=== PATIENT | female | born 1940 | race Caucasian/White ===

== ENCOUNTER 2019-02-27 17:44 | Inpatient (IN) | payer MEDICARE ==
[~2019-02-27] VITALS: Ht 156.2 cm; Wt 65.1 kg
--- NOTE | ~2019-02-27 | HEMODYNAMI ---
PATIENT:LAILA KENNEDY MEDICAL RECORD: [id number] : 40 LOCATION:[facility] D.2118 ADMISSION DATE: 02/27/19 Generatedon:03/02/20199:18 Patient name: LAILA KENNEDY Patient #: [id number] SSN: D OB: 1940 Date of study: 03/02/2019 Page: Of Hemodynamic Procedure Report Patient Data Patient Demographics Procedure consent was obtained First Name: LAILA Gender: Female Last Name: BRENT : 1940 Patient #: [id number] Age: 78 year(s) Race: Unknown Additional ID: [id number] Contact details [address]: [address] [place] [address] State: [place] City: [place] Zip code: [address] Past Medical History Allergies: No known allergies Admission Admission Data Admission Date: 02/27/2019 Admission Time: 19:11 Admit Source: Other Room #: D.2118 Lab Results Lab Result Date: 03/02/2019 Lab Result Time: 4:53 Biochemistry Name Units Result Min Max BUN mg/dl 31 --(----)-* 7 18 Creatinine mg/dl 1.7 --(----)-* 0.6 1.3 CBC Name Units Result Min Max Hematocrit % 28.7 *-(----)-- 42 54 Hemoglobin g/dl 9.6 *-(----)-- 13.5 17.5 Procedure Procedure Types Cath Procedure Diagnostic Procedure [facility] w/Coronaries Sedation Charges Moderate Sedation up to 30 minutes Procedure Description Procedure Date Procedure Date: 03/02/2019 Procedure Start Time: 8:34 Procedure End Time: 9:12 Procedure Staff Name Function Max Moralez MD Performing Physician Subhash Solo RT Monitor Dorothy North RT Scrub Natasha Maldonado RN Supervisor Bonding Lucy Brewer RN Nurse Procedure Data Cath Procedure Fluoroscopy Diagnostic fluoroscopy Total fluoroscopy Time: 7.2 time: 7.2 min min Diagnostic fluoroscopy Total fluoroscopy dose: dose: 1039 mGy 1039 mGy Contrast Material Contrast Material Type Amount (ml) Isovue 300 119 Entry Location Entry Primary Successful Side Size Upsize Upsize Entry Closure Succes sful Closure Location (Fr) 1 (Fr) 2 (Fr) Remarks Device Remarks Femoral Right 5 Fr 6 Fr Exoseal artery Short Estimated blood loss: 10 ml Diagnostic catheters Device Type Used For End Catheter Placement MULTIPACK JL 4.0 5Fr Procedure catheter MULTIPACK 3DRC 5Fr Procedure catheter MULTIPACK Pigtail 5 Fr Procedure catheter Procedure Complications No complications Procedure Medications Medication Administration Route Dosage 0.9% NaCl I.V. 100 ml/hr Oxygen etCO2 Nasal cannula 2 l/min Lidocaine 2% added to field 20 Heparin Flush Bag added to field 2 bags (1000units/500ml NS) Versed I.V. 2 mg Fentanyl I.V. 50 mcg Heparin Bolus I.V. 6500 units Plavix P.O. 600 mg Hemodynamics Rest HGB: 9.6 (g/dl) Heart Rate: 80 (bpm) Pressure Samples Time Site Value (mmHg) Purpose Heart Use Rate(bpm) 8:52 LV 182/4,19 Snapshot 77 Gradients Valve Time Site Site Mean SEP/DFP Peak To Heart Use 1 2 (mmHg) (sec/min) Peak Rate (mmHg) (bpm) Aortic 8:53 LV AO 86 Snapshots Pre Cath Intra NCS Post Cath Vital Signs Time Heart Resp SPO2 etCO2 NIBP (mmHg) Rhythm Pain Sedation Rate (ipm) (%) (mmHg) Status Level (bpm) 8:23:41 80 19 98 26.1 176/86(134) NSR 0 (11) 10(A) , No pain 8:28:22 81 18 97 16.4 166/82(128) NSR 0 (11) 10(A) , No pain 8:32:57 82 17 98 17.1 159/82(112) NSR 0 (11) 10(A) , No pain 8:37:29 83 14 97 16.4 165/86(130) NSR 0 (11) 9(A) , No pain 8:42:01 83 15 97 14.9 168/84(121) NSR 0 (11) 9(A) , No pain 8:46:28 83 15 97 33.6 158/86(125) NSR 0 (11) 9(A) , No pain 8:51:00 84 16 97 27.6 163/81(124) NSR 0 (11) 9(A) , No pain 8:55:32 85 14 98 20.9 164/87(125) NSR 0 (11) 9(A) , No pain 9:00:07 86 17 98 32.8 156/80(120) NSR 0 (11) 9(A) , No pain 9:04:39 82 17 98 18.6 158/78(115) NSR 0 (11) 9(A) , No pain 9:09:14 80 17 98 30.6 164/76(126) NSR 0 (11) 10(A) , No pain 9:13:46 85 21 98 32.8 168/87(125) NSR 0 (11) 10(A) , No pain Medications Time Medication Route Dose Verified Delivered Reason Notes Effectiveness by by 8:22:00 0.9% NaCl I.V. 100 Max Lucy used for ml/hr Kirt Brewer flight crew time clerk 8:22:07 Oxygen etCO2 2 Max Lucy used for Nasal l/min Kirt Brewer procedure cannula RN 8:22:14 Lidocaine 2% added 20ml Max Max for local to vial Kirt Moralez MD anesthetic field 8:22:18 Heparin Flush added 2 Max Max used for Bag to bags Kirt Moralez MD procedure (1000units/500ml field NS) 8:32:08 Versed I.V. 2 mg Max Lucy for sedation Kirt Brewer RN 8:32:16 Fentanyl I.V. 50 Max Lucy for sedation mcg Kirt Brewer RN 8:57:24 Heparin Bolus I.V. 6500 Max Lucy for verifi ed units Kirt Brewer anticoagulation with Dr. RAJANI Moralez 9:13:55 Plavix P.O. 600 Max Lucy for mg Kirt Brewer antiplatelet RN therapy Procedure Log Time Note 7:57:01 Informed consent obtained and on chart 7:57:09 Admit Source: Other 7:57:46 Diagnostic Cath status Elective 7:57:48 Natasha Maldonado RN sent for patient. Start room use. 7:57:49 Time tracking: Regular hours (M-F 7:00 - 5:00) 7:57:53 Plan of Care:Hemodynamics will remain stable., Cardiac rhythm will remain stable., Comfort level will be maintained., Respiratory function will remain adequate., Patient/ family verbilizes understanding of procedure., Procedure tolerated without complication., Recovers from procedure without complications.. 8:13:13 Patient received from Med II to CCL 1 Alert and oriented. Tansferred to table in Supine position. 8:13:14 Warm blankets applied, and liz hugger turned on for patient comfort. 8:13:14 Correct patient and procedure confirmed by team. 8:13:18 ECG and BP/O2 sat monitors applied to patient. 8:15:03 H&P Date Dictated: 02/28/2019 Within 30 days and on chart.. 8:17:30 Lab Result : BUN 31 mg/dl 8:17:30 Lab Result : Hemoglobin 9.6 g/dl 8:17:30 Lab Result : Creatinine 1.7 mg/dl 8:17:30 Lab Result : Hematocrit 28.7 % 8:22:00 0.9% NaCl 100 ml/hr I.V. was administered by Lucy Brewer RN; used for procedure; 8:22:07 Oxygen 2 l/min etCO2 Nasal cannula was administered by Lucy Brewer RN; used for procedure; 8:22:14 Lidocaine 2% 20ml vial added to field was administered by Max Moralez MD; for local anesthetic; 8:22:18 Heparin Flush Bag (1000units/500ml NS) 2 bags added to field was administered by Max Moralez MD; used for procedure; 8:26:12 Baseline sample Acquired. 8:26:15 Rhythm: sinus rhythm 8:26:17 Full Disclosure recording started 8:26:18 Pre-procedure instructions explained to patient. 8:26:18 Pre-op teaching completed and patient verbalized understanding. 8:26:20 Family in patients room. 8:26:22 Patient NPO since Midnight. 8:26:27 Patient allergic to No known allergies 8:26:29 Is the patient allergic to Iodine/contrast media? No. 8:26:30 Is patient on blood thinner?No 8:26:31 Patient diabetic? Yes. 8:26:32 If diabetic: On Metformin? No 8:26:35 Previous problem with sedation/anesthesia? No ? 8:26:36 Snore? Yes 8:26:38 Sleep apnea? No 8:26:38 Deviated septum? No 8:26:39 Opens mouth fully? Yes 8:26:39 Sticks out tongue? Yes 8:26:41 Airway obstruction? No ? 8:26:43 Dentures? No ? 8:26:47 Pre procedure: right dorsailis pedis pulse Doppler 8:26:49 Patient pain scale 0/10 ?. 8:26:52 IV patent on arrival in left forearm with 0.9% NaCl at [facility]. 8:26:55 Lab results completed and on chart. 8:26:58 Right groin area was prepped with chlora-prep and draped in sterile fashion 8:26:59 Alarms reviewed by R. N. 8:27:00 Sharps counted by scrub and verified by R.N. 8:27:04 Use device set Femoral Dx 8:27:05 ACIST Syringe (10717) opened to sterile field. 8:27:05 Bag Decanter (2002S) opened to sterile field. 8:27:06 Medline Cath Pack ([id number]) opened to sterile field. 8:27:07 ACIST Hand Control (55715) opened to sterile field. 8:27:08 ACIST Manifold (89820) opened to sterile field. 8:27:09 Tegaderm 4 x 4 (1626W) opened to sterile field. 8:27:10 DIAGNOSTIC WIRE .035 260cm J wire (869384) opened to sterile field. 8:27:11 DIAGNOSTIC Multipack 5Fr catheter set (XF2579) opened to sterile field. 8:27:12 SHEATH 5FR [place] (VGK333) opened to sterile field. 8:28:45 Physician arrived 8:28:45 --------ALL STOP TIME OUT------ 8:28:46 Final Timeout: patient, procedure, and site verified with staff and physician. All members of the team are in agreement. 8:28:47 Right groin site verified by team. 8:29:06 Maximum allowable Isovue 300 dose 186ml. Physician notified. (300ml for normal creatinines. For patients with creatinine of 1.7 or higher multiply weight(kg) x 5 divided by creatinine.) 8:29:10 Fire Safety Assessment: A--An alcohol-based skin anteseptic being used preoperatively., C--Open oxygen or nitrous oxide is being used., D--An ESU, laser, or fiber-optic light is being used. 8:29:13 Physical assessment completed. ASA score P 2 - A patient with mild systemic disease as per Max Moralez MD. 8:29:15 Sedation plan: IV Moderate Sedation Medication:Versed, Fentanyl 8:30:54 Zero performed for pressure channel P1 8:32:08 Versed 2 mg I.V. was administered by Lucy Brewer RN; for sedation; 8:32:16 Fentanyl 50 mcg I.V. was administered by Lucy Brewer RN; for sedation; 8:34:43 Procedure started. 8:34:46 Local anesthetic to right femoral artery with Lidocaine 2% by Max Moralez MD.INITIAL ACCESS ONLY 8:42:06 MICROPUNCTURE 4FR Cook ([id number]) opened to sterile field. 8:46:11 Access obtained with 4Fr micropunture. 8:47:08 A 5 Fr sheath was inserted into the Right Femoral artery 8:47:43 A MULTIPACK JL 4.0 5Fr catheter was advanced over the wire and used for Procedure. 8:47:56 LCA angiography performed. 8:49:48 Catheter exchanged over wire. 8:49:56 A MULTIPACK 3DRC 5Fr catheter was advanced over the wire and used for Procedure. 8:50:23 RCA angiography performed. 8:51:24 Catheter exchanged over wire. 8:51:29 A MULTIPACK Pigtail 5 Fr catheter was advanced over the wire and used for Procedure. 8:52:29 INFLATOR Merit BasixCompak (PU7251) opened to sterile field. 8:52:30 SHEATH 6FR [place] (XWV736) opened to sterile field. 8:52:42 TUBING High Pressure Extension Tubing (Kirt) (MH9266M) opened to sterile field. 8:52:53 LV gram done using GARCIA 8:52:56 Injector settings: Ml/sec: 10, Volume: 20, 8:52:57 LV hemodynamics recorded. 8:53:10 EF : 45 % 8:53:33 Catheter removed. 8:53:42 Sheath upsized to a 6 Fr Short. 8:54:01 BMW 300cm Alpha 2 J wire ([id number]) opened to sterile field. 8:54:47 GUIDE 6FR JR 4.0 SH catheter ([id number]) opened to sterile field. 8:56:22 6 Fr JR 4 SH guide catheter was inserted over the wire 8:57:24 Heparin Bolus 6500 units I.V. was administered by Lucy Brewer RN; for anticoagulation; verified with Dr. Moralez 8:58:00 BMW wire advanced. 8:58:42 Wire advanced across lesion. 9:00:00 Inflate balloon Inflation number: 1 A EMERGE OTW 2.0 x 15 balloon ([id number]) was prepped and advanced across the Dist RCA 0, then inflated to 14 ROWAN for 0:10 (min:sec) . 9:01:30 Inflation number: 2 The EMERGE OTW 2.0 x 15 balloon ([id number]) was reinflated across the Dist RCA 99, to 14 ROWAN for 0:10 (min:sec) . 9:02:25 Balloon removed over the wire. 9:07:38 Pre PCI Site: Ramona dRCA has 99% stenosis. 9:08:51 Place stent Inflation Number: 3 A INTEGRITY OTW 2.25 X 26 stent ([id number]) was prepped and advanced across the Dist RCA 99. The stent was deployed at 12 ROWAN for 0:10 (min:sec) 0. 9:10:13 Stent catheter was removed intact over wire. 9:10:19 Wire removed. 9:10:22 Guide catheter removed. 9:10:28 EXOSEAL 6Fr (EX600) opened to sterile field. 9:10:57 Sheath removed intact; hemostasis achieved with Exoseal to the Right Femoral artery. 9:10:59 Procedure ended.(Physican Out) 9:11:25 Fluoroscopy time 07.20 minutes. 9:11:28 Fluoroscopy dose: 1039 mGy 9:11:28 Flurop Dose total: 1039 9:11:31 Contrast amount:Isovue 300 119ml. 9:11:33 Sharps counted by scrub and verified by R.N. 9:11:33 Insertion/operative site no bleeding no hematoma. 9:11:36 Post-op/insertion site Right Femoral artery dressed using a 4 x 4 and Tegaderm. 9:11:39 Post right femoral artery:stable, soft, clean and dry 9:11:39 Post Procedure Pulses reassessed and unchanged 9:11:41 Post-procedure physical assessment completed. ASA score P 2 - A patient with mild systemic disease as per Max Moralez MD. 9:11:43 Post procedure rhythm: unchanged. 9:11:44 Estimated blood loss: 10 ml 9:11:45 Post procedure instruction explained to patient.Patient verbalizes understanding. 9:11:45 Patient needs reinforcement of post procedure teaching. 9:12:12 Procedure type changed to Cath procedure, Diagnostic procedure, LHC, LHC w/Coronaries, Sedation Charges, Moderate Sedation up to 30 minutes 9:12:30 Procedure and supply charges have been captured, reviewed, submitted and are correct. 9:12:36 Procedure Complication : No complications 9:12:37 Vital chart was stopped 9:12:38 See physician's report for complete and final results. 9:12:39 Report given to Pre/Post Procedure Room. 9:12:41 Patient transfered to Pre/Post Procedure Room with Stretcher. 9:12:43 Procedure ended. 9::43 Full Disclosure recording stopped 9:13:55 Plavix 600 mg P.O. was administered by Lucy Brewer RN; for antiplatelet therapy; 9:15:15 End room use (Document Last) Intervention Summary Intervention Notes Time ActionType Lesion and Equipment Action# Pressure Duration Attributes Used 9:00:00 Inflate Dist RCA EMERGE OTW 1 14 00:10 balloon 2.0 x 15 balloon ([id number]) 9:01:30 Reinflate Dist RCA EMERGE OTW 2 14 00:10 balloon 2.0 x 15 balloon ([id number]) 9:08:51 Place stent Dist RCA INTEGRITY 3 12 00:10 OTW 2.25 X 26 stent ([id number]) Device Usage Item Name Manufacture Quantity Catalog Number Hospital Part Current Min imal Lot# / Charge Number Stock Stock Serial# Code ACIST Syringe Acist 1 58522 321491 332494 158926 20 (51508) Medical Systems Inc Bag Decanter Microtek 1 035892 92829 663364 5 () Medical Inc. Medline Cath Medline 1 [id number] 165250 47673 166594 5 Pack ([id number]) ACIST Hand Acist 1 94012 489351 938596 301602 5 Control Medical (25816) Systems Inc ACIST Acist 1 94350 823077 521440 412061 5 [facility] Medical (41047) Systems Inc Tegaderm 4 x 3M 1 1626W 846493 092267 545633 5 4 (1626W) DIAGNOSTIC [facility] [place] 1 178157 792085 489726 728924 30 WIRE .035 260cm J wire (605746) DIAGNOSTIC Cardinal 1 YX8448 936819 86749 852011 30 Multipack 5Fr Health catheter set (QR2218) SHEATH 5FR Terumo 1 CTD844 132956 373215 186204 5 [place] (NTL404) MICROPUNCTURE [place] Medical 1 S65778 512245 144509 782940 5 4FR Cook (D85825) MULTIPACK JL Cardinal 1 140002 5 4.0 5Fr Health catheter MULTIPACK Cardinal 1 074521 5 3DRC 5Fr Health catheter MULTIPACK Cardinal 1 993931 5 Pigtail 5 Fr Health catheter INFLATOR Merit 1 ZL1290 133539 775501 533485 15 [facility] BasixCompak (AJ7398) SHEATH 6FR Terumo 1 DIO516 097333 814677 778838 40 [place] (UOY836) TUBING High Merit 1 WA6427Z 280025 49738 270961 10 Pressure Medical Extension Tubing (Moralez) (SR6323Y) BMW 300cm Emery 1 [id number] 082957 439158 150497 5 Alpha 2 J Vascular wire (1130069G) GUIDE 6FR JR Medtronic 1 [id number] 694002 84790 668545 1 4.0 SH catheter ([id number]) EXOSEAL 6Fr Cardinal 1 EX600 356807 457907 083995 10 (EX600) Health EMERGE OTW [place] 1 [id number] 415950 179653 304384 5 [id number] 2.0 x 15 Scientific balloon ([id number]) INTEGRITY OTW Medtronic 1 [id number] 318501 595851 112454 9 [id number] 2.25 X 26 stent ([id number]) Signature Audit Sims Stage Time Signature Unsigned Intra-Procedure 03/02/2019 Subhash Solo 9:18:49 AM RT(R) Signatures Monitor : Subhash Solo RT Signature : Date : Time : [address] [place] [address]
[2019-02-27] MEDS ORDERED: PROBIOTIC1 EAC1 PO (17:57)
[2019-02-27] MEDS ORDERED: BAYER CHEWABLE81 MG PO (17:57)
[2019-02-27] MEDS ORDERED: XANAX0.25 MG PO (17:57)
[2019-02-27] MEDS ORDERED: BACTRIM 400-801 TAB PO (17:58)
[2019-02-27] MEDS ORDERED: UNITHROID100 MCG PO (17:58)
[2019-02-27] MEDS ORDERED: COZAAR50 MG PO (17:58)
[2019-02-27] MEDS ORDERED: LEVEMIR FL100 UNIT/1 SC (17:58)
[2019-02-27] MEDS ORDERED: HYDROCHLOROTH12.5 M1 PO (17:59)
[2019-02-27] MEDS ORDERED: MYRBETRIQ25 MG PO (17:59)
[2019-02-27] MEDS ORDERED: TOPROL XL50 MG PO (17:59)
[2019-02-27 18:38] LABS: BASOPHILS 1.1 % (0-2); EOSINOPHILS 2.1 % (0-7); HEMATOCRIT 30.1 % (36.0-48.0); HEMOGLOBIN 10.3 g/dL (12-16); IMMATURE GRANULOCYTES 0.2 % (0-5); LYMPHOCYTES 37.2 % (15-50); MCH 29.9 pg (26.0-34.0); MCHC 34.2 g/dL (31.0-37.0); MCV 87.5 fL (80.0-100.0); MEAN PLATELET VOLUME 10.2 fL (7.4-10.4); MONOCYTES 13.5 % (2-11); NEUTROPHILS 45.9 % (40-80); PLATELET COUNT 205 10x3/uL (130-400); RBC 3.44 10x6/uL (4.00-5.40); RDW 14.9 % (11.5-14.5); WBC 4.4 10x3/uL (4.8-10.8)
[2019-02-27 18:51] LABS: APTT 38.4 SECONDS (22.8-39.4); INR 1.15 (0.85-1.17); PROTIME 14.2 SECONDS (11.6-15.0)
--- NOTE | 2019-02-27 18:53 | NUR ---
HAND OFF REPORT GIVEN TO RAJANI HUA
[2019-02-27 19:29] VITALS: BP 145/60
[2019-02-27 19:50] LABS: ALBUMIN 3.5 g/dL (3.4-5.0); ALKALINE PHOSPHATASE 77 U/L (46-116); ALT (SGPT) 15 U/L (10-68); BILIRUBIN - TOTAL 0.29 mg/dL (0.2-1.3); CALC OSMOLALITY 293 mosm/kg (275-300); CALCIUM 9.1 mg/dL (8.5-10.1); CARBON DIOXIDE 21.4 mmol/L (21.0-32.0); CHLORIDE - SERUM 106 mmol/L (98-107); CREATININE - SERUM 2.2 mg/dL (0.6-1.3); GLUCOSE 117 mg/dL (74-106); POTASSIUM - SERUM 4.2 mmol/L (3.5-5.1); PROTEIN - SERUM 7.3 g/dL (6.4-8.2); SODIUM 140 mmol/L (136-145); UREA NITROGEN 53 mg/dL (7-18); eGFR NON AFRICAN AMERICAN 23 mL/min (90-120)
[2019-02-27 20:07] LABS: CKMB 5.1 U/L (0.0-3.6); CREATINE KINASE 91 UL (21-215); MAGNESIUM - SERUM 2.4 mg/dL (1.8-2.4)
[2019-02-27 20:14] LABS: TROPONIN-I 3.558 ng/mL (0.000-0.060)
--- NOTE | 2019-02-27 20:41 | NUR ---
REPORT RECIEVED FROM ER NURSE.
[2019-02-27] MEDS ORDERED: GABAPENTIN100 MG PO (21:21)
[2019-02-27] MEDS ORDERED: DOXEPIN HCL10 MG PO (21:23)
[2019-02-27] MEDS ORDERED: CELEXA10 MG PO (21:24)
--- NOTE | 2019-02-27 21:41 | NUR ---
ADMITTED TO ROOM 2117 FROM ER. ACCOMPANIED BY DAUGHTERS X 2. ALERT/ORIENTED. GOOD HISTORIAN, BUT LIMITED MED RECALL AND DAUGHTERS ARE ALSO NOT AWARE OF EXACTLY WHICH MEDS PATIENT TAKES. ADMISSION ASSESSMENT AND HISTORY COMPLETED. TELEMETRY STARTED. . IV NS @ 100ML/HR INFUSING TO LFA. NONLABORED RESPIRATIONS ON ROOM AIR.
--- NOTE | 2019-02-27 22:34 | NUR ---
CHRISTA GRANADO RN,AVIATION TECHNICIAN ON UNIT SEEING PATIENT.
[2019-02-27 23:24] VITALS: BP 150/62; BMI 26.0
[2019-02-28] VITALS (7 sets, daily range): BP systolic 117–158; BP diastolic 44–78; Ht 156.2 cm; Wt 65.1 kg
--- NOTE | 2019-02-28 00:45 | NUR ---
PT DID RECIEVE XANAX AND NEURONTIN FOR BEDTIME. RESTING WITH NO DISTRESS. SB PER TELEMETRY. CALL LIGHT IN REACH.
[2019-02-28 01:41] LABS: BASOPHILS 0.5 % (0-2); EOSINOPHILS 2.7 % (0-7); HEMATOCRIT 27.7 % (36.0-48.0); HEMOGLOBIN 9.2 g/dL (12-16); IMMATURE GRANULOCYTES 0.3 % (0-5); LYMPHOCYTES 34.2 % (15-50); MCH 29.6 pg (26.0-34.0); MCHC 33.2 g/dL (31.0-37.0); MCV 89.1 fL (80.0-100.0); MEAN PLATELET VOLUME 10.3 fL (7.4-10.4); MONOCYTES 14.4 % (2-11); NEUTROPHILS 47.9 % (40-80); PLATELET COUNT 179 10x3/uL (130-400); RBC 3.11 10x6/uL (4.00-5.40); RDW 14.9 % (11.5-14.5); WBC 3.7 10x3/uL (4.8-10.8)
[2019-02-28 02:07] LABS: CALC OSMOLALITY 298 mosm/kg (275-300); CALCIUM 8.5 mg/dL (8.5-10.1); CARBON DIOXIDE 22.8 mmol/L (21.0-32.0); CHLORIDE - SERUM 108 mmol/L (98-107); CKMB 3.8 U/L (0.0-3.6); CREATINE KINASE 87 UL (21-215); CREATININE - SERUM 2.1 mg/dL (0.6-1.3); GLUCOSE 144 mg/dL (74-106); MAGNESIUM - SERUM 2.2 mg/dL (1.8-2.4); PHOSPHOROUS 4.4 mg/dL (2.5-4.9); POTASSIUM - SERUM 4.4 mmol/L (3.5-5.1); SODIUM 141 mmol/L (136-145); THYROID STIMULATING HORMONE 2.38 uIU/mL (0.36-3.74); UREA NITROGEN 54 mg/dL (7-18); eGFR NON AFRICAN AMERICAN 24 mL/min (90-120)
[2019-02-28 02:08] LABS: TROPONIN-I 2.895 ng/mL (0.000-0.060)
--- NOTE | 2019-02-28 03:25 | NUR ---
ATTEMPT TO COLLECT UA SPECIMEN UNSUCCESSFUL, PT CONTAMINATED SPECIMEN WITH TOILET PAPER. WILL ATTEMPT AGAIN.
--- NOTE | 2019-02-28 07:20 | NUR ---
ASSESSMENT DONE. DENIES NEEDS
--- NOTE | 2019-02-28 10:45 | NUR ---
I have reviewed this patient and I concur with the Shift Assessment completed by the Licensed Practical Nurse today this shift.
--- NOTE | 2019-02-28 11:57 | NUR ---
I have reviewed this patient and I concur with the Shift Assessment completed by the Licensed Practical Nurse today this shift.
[2019-02-28 13:46] LABS: CKMB 2.9 U/L (0.0-3.6); CREATINE KINASE 91 UL (21-215)
[2019-02-28 13:47] LABS: TROPONIN-I 2.053 ng/mL (0.000-0.060)
[2019-02-28 15:03] LABS: ERYTHROCYTE SEDIMENTATION RATE 67 mm/hr (0-30)
[2019-02-28 15:11] LABS: CREATININE - URINE 30.1 mg/dL (30-125); PRO/CRE RATIO URINE 0.4 mg/g; PROTEIN - URINE 11.1 mg/dL (0.0-11.9)
[2019-02-28 15:13] LABS: APPEARANCE CLEAR (CLEAR); BILIRUBIN NEGATIVE (NEGATIVE); COLOR STRAW (YELLOW); GLUCOSE NEGATIVE (NEGATIVE); KETONE NEGATIVE (NEGATIVE); NITRITE NEGATIVE (NEGATIVE); PROTEIN NEGATIVE (NEGATIVE); SPECIFIC GRAVITY 1.005 (1.005-1.020); UROBILINOGEN NORMAL (NORMAL)
[2019-02-28 15:14] LABS: RED CELLS - URINE NONE SEEN /hpf (0-5)
[2019-02-28 15:15] LABS: BACTERIA FEW /hpf (NONE SEEN); EPITHELIAL CELLS NSEEN /hpf (0-5)
[2019-02-28 16:03] LABS: % SATURATION 16 % (15-55); IRON 41 ug/dl (35-150); TOTAL IRON BIND CAPACITY 247 ug/dl (260-445); UNSAT IRON BIND CAPACITY 206 ug/dl (150-375)
--- NOTE | 2019-02-28 19:23 | NUR ---
RECEIVED REPORT, WILL ASSUME CARE OF PT, PT IS UP IN RESTROOM, ASSISTED PT BACK TO BED, BED IS LOW, SRX2, CALL LIGHT IN REACH, WILL CONTINUE PLAN OF CARE
--- NOTE | 2019-02-28 21:00 | NUR ---
PROMOTIONAL ADVERTISING ASSISTANT ASSISTED PT TO SHOWER AND CHANGE LINENS
[2019-03-01] VITALS (7 sets, daily range): BP systolic 138–176; BP diastolic 46–77
[2019-03-01 04:52] LABS: BASOPHILS 0.4 % (0-2); HEMATOCRIT 26.3 % (36.0-48.0); HEMOGLOBIN 8.9 g/dL (12-16); LYMPHOCYTES 17.4 % (15-50); MCH 30.2 pg (26.0-34.0); MCHC 33.8 g/dL (31.0-37.0); MCV 89.2 fL (80.0-100.0); NEUTROPHILS 66.2 % (40-80); PLATELET COUNT 189 10x3/uL (130-400); RBC 2.95 10x6/uL (4.00-5.40); RDW 14.9 % (11.5-14.5)
[2019-03-01 04:58] LABS: ANION GAP 15.8 mmol/L (8-16); CALCIUM 8.3 mg/dL (8.5-10.1); CARBON DIOXIDE 20.1 mmol/L (21.0-32.0); CREATININE - SERUM 1.8 mg/dL (0.6-1.3); POTASSIUM - SERUM 3.9 mmol/L (3.5-5.1)
--- NOTE | 2019-03-01 09:30 | NUR ---
LEAVING FOR MRI BY W/C. WILL CONT. PLAN OF CARE.
--- NOTE | 2019-03-01 10:38 | NUR ---
CONSENTS SIGNED FOR [facility]. WILL CONT. PLAN OF CARE.
--- NOTE | 2019-03-01 11:05 | NUR ---
FSBS 198. HUMALOG 4 UNITS GIVEN PER SS.
--- NOTE | 2019-03-01 12:47 | NUR ---
IV RESTARTED WITH 22 GAUGE CATH X 1 STICK BY LUCERO COLMENARES. LINE IS PATENT.
--- NOTE | 2019-03-01 19:46 | NUR ---
INITIAL ROUNDS AND ASSESSMENT COMPLETED. PT RESTING IN BED. NO DISTRESS. MONITOR AND CPOC.
--- NOTE | 2019-03-01 20:32 | NUR ---
BEDTIME MEDS GIVEN. FSBS 287. PT WILL BE NPO AT MIDNIGHT FOR HEART CATH IN AM. GAVE 1/2 DOSE OF INSULIN AND WILL MONITOR AGAIN IN AM. PROVIDED PT WITH REQUESTED XANAX TO PROMOTE SLEEP/DECREASED NERVES. CALL LIGHT IN REACH.
[2019-03-02] VITALS (11 sets, daily range): BP systolic 134–176; BP diastolic 57–98
--- NOTE | 2019-03-02 04:25 | NUR ---
RESTING WITH NO DISTRESS. NPO FOR AM LEFT HEART CATH. MONITOR AND CPOC.
[2019-03-02 05:33] LABS: BASOPHILS 0.8 % (0-2); EOSINOPHILS 3.3 % (0-7); HEMATOCRIT 28.7 % (36.0-48.0); HEMOGLOBIN 9.6 g/dL (12-16); IMMATURE GRANULOCYTES 0.2 % (0-5); LYMPHOCYTES 19.2 % (15-50); MCHC 33.4 g/dL (31.0-37.0); MCV 89.7 fL (80.0-100.0); MEAN PLATELET VOLUME 10.6 fL (7.4-10.4); MONOCYTES 14.3 % (2-11); NEUTROPHILS 62.2 % (40-80); PLATELET COUNT 241 10x3/uL (130-400); WBC 5.2 10x3/uL (4.8-10.8)
[2019-03-02 05:43] LABS: ANION GAP 15.4 mmol/L (8-16); CALCIUM 8.9 mg/dL (8.5-10.1); CARBON DIOXIDE 21.1 mmol/L (21.0-32.0); CREATININE - SERUM 1.7 mg/dL (0.6-1.3); POTASSIUM - SERUM 3.5 mmol/L (3.5-5.1)
--- NOTE | 2019-03-02 07:15 | NUR ---
RECEIVED PT IN BED EYES CLOSED RESP UNLABORED TELEMETRY SHOWS SR RATE 76 NAD NOTED WILL CONTINUE TO MONITOR
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
--- NOTE | 2019-03-02 09:44 | NUR ---
RECEIVED PT BACK TO ROOM FROM [place]AK HUNTER AAOX4 RESP UNLABORED SKIN W/D DRSG TO RT GROIN C/D/I PPPX4 VSS DENIES ANY NEEDS AT THIS TIME
--- NOTE | 2019-03-02 19:34 | NUR ---
RESUMING PATIENT CARE. PATIENT IS ALERT AND ORIENTED, RESTING COMFORTABLY IN BED READING A BOOK. RESPIRATION ARE EVEN AND UNLABORED. NO S/S OF DISTRESS. NO C/O PAIN. CALL LIGHT WITHIN REACH. WILL CPOC.
[2019-03-03 04:00] VITALS: BP 153/69
[2019-03-03 05:54] LABS: BASOPHILS 0.4 % (0-2); EOSINOPHILS 5.7 % (0-7); HEMATOCRIT 26.3 % (36.0-48.0); HEMOGLOBIN 8.8 g/dL (12-16); IMMATURE GRANULOCYTES 0.2 % (0-5); LYMPHOCYTES 22.6 % (15-50); MCH 29.9 pg (26.0-34.0); MCHC 33.5 g/dL (31.0-37.0); MCV 89.5 fL (80.0-100.0); MEAN PLATELET VOLUME 10.1 fL (7.4-10.4); MONOCYTES 12.7 % (2-11); NEUTROPHILS 58.4 % (40-80); PLATELET COUNT 230 10x3/uL (130-400); RBC 2.94 10x6/uL (4.00-5.40); WBC 4.7 10x3/uL (4.8-10.8)
[2019-03-03 06:00] LABS: ANION GAP 15.7 mmol/L (8-16); CALCIUM 8.4 mg/dL (8.5-10.1); CREATININE - SERUM 1.7 mg/dL (0.6-1.3); POTASSIUM - SERUM 3.7 mmol/L (3.5-5.1)
--- NOTE | 2019-03-03 07:15 | NUR ---
RECEIVED PT IN BED AAOX4 RESP UNLABORED SKIN W/D COLOR WNL NAD NOTED DENIES ANY PAIN AT THIS TIME
[2019-03-03] MEDS ORDERED: PROTONIX40 MG PO (07:58)
[2019-03-03 08:09] VITALS: BP 139/74
[2019-03-03 08:13] LABS: FOLATE (FOLIC ACID) - SERUM 6.7 ng/mL (>3.0)
--- NOTE | 2019-03-03 11:49 | NUR ---
FSBS 212 HUMALOG 8 UNITS SQ ABDOMEN
[2019-03-03 12:09] VITALS: BP 142/63
--- NOTE | 2019-03-03 13:35 | NUR ---
Nutrition follow-up: Diet: AHA ADA renal PO intake ~70% average of last 6 meals Labs reviewed Wt: 138# no BM charted RDN following.
--- NOTE | 2019-03-03 13:52 | MORECARE ---
CASE MANAGEMENT DISCHARGE SUMMARY PATIENT: LAILA KENNEDY UNIT: [id number] ADM DATE: 02/27/19 AGE: 78 : 40 SEX: F ROOM/BED: D.9561 AUTHOR: COSMO,DOC PHYSICIAN: REFERRING PHYSICIAN: DESTINI CHRISTY MD DATE OF SERVICE: 03/03/19 Discharge Plan Patient Name: LAILA KENNEDY Facility: [facility]:[place] : 1940 Planned Disposition: Alf Facility Anticipated Discharge Date: Discharge Date: Expected LOS: Initial Reviewer: [id number] Initial Review Date: 02/27/2019 Generated: 03/03/19 2:52 pm Comments DCP- Discharge Planning Updated by [email or web address]: Brody Daily on 03/03/19 12:[address] Patient Name: LAILA KENNEDY Admission Status: ER Accout number: [id number] Admission Date: 02-27-2019 : 1940 Admission Diagnosis:NON-ST ELEVATION (NSTEMI) MYOCARDIAL INFARCTION Attending: DESTINI CHRISTY Current LOS: 4 Anticipated DC Date: Planned Disposition: Alf Facility Primary Insurance: MEDICARE A & B PLANNED EXTERNAL PROVIDER: TO BE DETERMINED, WAITING PATIENTS DECISION Discharge Planning Comments: CM MET WITH PT IN ROOM TO DISCUSS DISCHARGE PLANNING AND NEEDS. PT REPORTS LIVING AT HOME INDEPENDENTLY AND ALONE. PT HAS WALKER AND CANE WITH NO MEDICAL EQUIPMENT PROVIDER PREFERENCE. PT HAS NO OUTSIDE SERVICES ASSISTING IN THE HOME. CM DISCUSSED AVAILABILITY OF HOME HEALTH, REHAB SERVICES AND MEDICAL EQUIPMENT. PT IS NOT SURE WHAT SHE NEEDS, BUT THIKS SHE NEEDS REHAB SERVICES. PT DOES NOT WANT INPATIENT REHAB THEY MAKE YOU EXERCISE TOO MUCH. CM DISCUSSED LONG-TERM REHAB, PROVIDED PT WITH LISTING OF NURSING FACILITY REHAB'S WITHIN 50 MILES OF HER HOME. PT WILL THINK ABOUT HER OPTIONS AND LET CM KNOW. PT SIGNED CONSENT FOR LONG-TERM REHAB OR [facility] INPATIENT REH[facility] AND WILL LET CM KNOW HER CHOICE. PT REPORTS HER DAUGHTER WILL PICK HER UP FOR DISCHARGE HOME. IMPORTANT MESSAGE FROM MEDICARE PROVIDED AND EXPLAINED. CM WAITING PT DECISION REGARDING REHAB SELECTIONS WELL PHYSICAL THERAPY EVALUATION. Firearms Expert: Brody Daliy DCPIA - Discharge Planning Initial Assessment Updated by [email or web address]: Brody Daily on 03/03/19 1:46 pm * Is the patient Alert and Oriented? Yes * How many steps to enter\exit or inside your home? * PCP RALPH REECE * Pharmacy [facility] CANNOT REMEMBER * Preadmission Environment Home Alone * ADLs Independent * Equipment Cane Walker * Other Equipment NO MEDICALEQUIPMENT PROVIDER PREFERENCE * List name and contact numbers for known caregivers / representatives who currently or will assist patient after discharge: COLLINS ZHOU DTR, * Verbal permission to speak to the caregivers and representatives has been obtained from the patient. N/A * Community resources currently utilized None * Please name any agencies selected above. NONE * Additional services required to return to the preadmission environment? No * Can the patient safely return to the preadmission environment? Yes * Has this patient been hospitalized within the prior 30 days at any hospital? No Coverage Notice Reviewer: [email or web address] Daily Notice Issued Date-Time: 03/03/2019 10:00 Notice Type: IM Discharge Notice Notice Delivered To: Patient Relationship to Patient: Motor Vehicle Compliance Analyst Name: Delivery Method: HAND - Hand Delivered Katherine Days: Prior Verbal Notification: Recipient Understood Notice: Yes Recipient Signature: Yes Med Rec Note Co-signed by Attending: Coverage Notice Comment: Reviewer: [id number] Hao Daily Notice Issued Date-Time: 03/03/2019 10:00 Notice Type: Patient Choice Letter Notice Delivered To: Patient Relationship to Patient: Motor Vehicle Compliance Analyst Name: Delivery Method: HAND - Hand Delivered Katherine Days: Prior Verbal Notification: Recipient Understood Notice: Yes Recipient Signature: Yes Med Rec Note Co-signed by Attending: Coverage Notice Comment: LONG-TERM REHAB OR [facility] INPATIENT RE[facility]. Patient Name: LAILA KENNEDY Page [phone] at 1352 All edits/amendments must be made on the electronic document DICTATION DATE: 03/03/19 1352 DONOR CENTER TECHNICIAN: VIRGIL 03/03/19 1352 RPT#: [id number] DC DATE: STATUS: ADM IN [facility] [address] [place] [address] END OF REPORT
[2019-03-03 15:12] LABS: SPE - A/G RATIO 1.1 (0.7-1.7); SPE - ALBUMIN 3.1 g/dL (2.9-4.4); SPE - ALPHA-1 GLOBULIN 0.2 g/dL (0.0-0.4); SPE - ALPHA-2 GLOBULIN 0.9 g/dL (0.4-1.0); SPE - BETA GLOBULIN 0.9 g/dL (0.7-1.3); SPE - GAMMA GLOBULIN 0.9 g/dL (0.4-1.8); SPE - M-SPIKE Not Observed g/dL (Not Observed)
--- NOTE | 2019-03-03 15:34 | NUR ---
RESTING QUIETLY NAD NOTED
[2019-03-03 16:34] VITALS: BP 152/67
--- NOTE | 2019-03-03 19:43 | NUR ---
RESUMED PATIENT CARE. ASSISTED PATIENT WITH ORAL CARE. NO FURTHER NEEDS EXPRESSED. RESPIRATIONS EVEN AND UNLABORED. CALL LIGHT IN REACH. NO S/S OF DISTRESS NO C/O PAIN. WILL CPOC
[2019-03-03 20:00] VITALS: BP 158/82
[2019-03-03 23:30] VITALS: BP 148/56
[2019-03-04 04:00] VITALS: BP 137/95
[2019-03-04 06:47] LABS: BASOPHILS 0.8 % (0-2); HEMATOCRIT 25.5 % (36.0-48.0); HEMOGLOBIN 8.7 g/dL (12-16); IMMATURE GRANULOCYTES 0.2 % (0-5); MCH 30.5 pg (26.0-34.0); MCHC 34.1 g/dL (31.0-37.0); MCV 89.5 fL (80.0-100.0); MEAN PLATELET VOLUME 10.4 fL (7.4-10.4); MONOCYTES 10.5 % (2-11); NEUTROPHILS 64.5 % (40-80); PLATELET COUNT 251 10x3/uL (130-400); RBC 2.85 10x6/uL (4.00-5.40); RDW 15.1 % (11.5-14.5); WBC 5.3 10x3/uL (4.8-10.8)
[2019-03-04 07:21] LABS: ANION GAP 16.4 mmol/L (8-16); CALCIUM 8.5 mg/dL (8.5-10.1); CARBON DIOXIDE 21.2 mmol/L (21.0-32.0); CREATININE - SERUM 1.7 mg/dL (0.6-1.3); POTASSIUM - SERUM 3.6 mmol/L (3.5-5.1)
[2019-03-04 08:31] VITALS: BP 148/82
--- NOTE | 2019-03-04 11:08 | NUR ---
IV RESTARTED TO LEFT FA WITH 22 CAMILO CATH X 1 STICK BY REBECCA GERARD. LINE IS PATENT.
[2019-03-04 11:39] VITALS: BP 165/76
[2019-03-04] MEDS ORDERED: OMNICEF300 MG PO (12:14)
--- NOTE | 2019-03-04 13:41 | MORECARE ---
CASE MANAGEMENT DISCHARGE SUMMARY PATIENT: LAILA KENNEDY UNIT: [id number] ADM DATE: 02/27/19 AGE: 78 : 40 SEX: F ROOM/BED: D.7077 AUTHOR: COSMO,DOC PHYSICIAN: REFERRING PHYSICIAN: DESTINI CHRISTY MD DATE OF SERVICE: 03/04/19 Discharge Plan Patient Name: LAILA KENNEDY Facility: [facility]:[place] : 1940 Planned Disposition: Correction Facility Anticipated Discharge Date: Discharge Date: Expected LOS: Initial Reviewer: [email or web address] Initial Review Date: 02/27/2019 Generated: 03/04/19 2:40 pm Comments DCP- Discharge Planning Updated by [id number]: Brody Daily on 03/03/19 12:[address] Patient Name: LAILA KENNEDY Admission Status: ER Accout number: [id number] Admission Date: 02-27-2019 : 1940 Admission Diagnosis:NON-ST ELEVATION (NSTEMI) MYOCARDIAL INFARCTION Attending: DESTINI CHRISTY Current LOS: 4 Anticipated DC Date: Planned Disposition: Correction Facility Primary Insurance: MEDICARE A & B PLANNED EXTERNAL PROVIDER: TO BE DETERMINED, WAITING PATIENTS DECISION Discharge Planning Comments: CM MET WITH PT IN ROOM TO DISCUSS DISCHARGE PLANNING AND NEEDS. PT REPORTS LIVING AT HOME INDEPENDENTLY AND ALONE. PT HAS WALKER AND CANE WITH NO MEDICAL EQUIPMENT PROVIDER PREFERENCE. PT HAS NO OUTSIDE SERVICES ASSISTING IN THE HOME. CM DISCUSSED AVAILABILITY OF HOME HEALTH, REHAB SERVICES AND MEDICAL EQUIPMENT. PT IS NOT SURE WHAT SHE NEEDS, BUT THIKS SHE NEEDS REHAB SERVICES. PT DOES NOT WANT INPATIENT REHAB THEY MAKE YOU EXERCISE TOO MUCH. CM DISCUSSED SHELTER REHAB, PROVIDED PT WITH LISTING OF NURSING FACILITY REHAB'S WITHIN 50 MILES OF HER HOME. PT WILL THINK ABOUT HER OPTIONS AND LET CM KNOW. PT SIGNED CONSENT FOR [facility]LTER REHAB OR [facility] INPATIENT REHAB AND WILL LET CM KNOW HER CHOICE. PT REPORTS HER DAUGHTER WILL PICK HER UP FOR DISCHARGE HOME. IMPORTANT MESSAGE FROM MEDICARE PROVIDED AND EXPLAINED. CM WAITING PT DECISION REGARDING REHAB SELECTIONS WELL PHYSICAL THERAPY EVALUATION. Economic Analysis Director: Brody Daily DCPIA - Discharge Planning Initial Assessment Updated by [email or web address]: Brody Daily on 03/03/19 1:46 pm * Is the patient Alert and Oriented? Yes * How many steps to enter\exit or inside your home? * PCP RALPH REECE * Pharmacy [facility] CANNOT REMEMBER * Preadmission Environment Home Alone * ADLs Independent * Equipment Cane Walker * Other Equipment NO MEDICALEQUIPMENT PROVIDER PREFERENCE * List name and contact numbers for known caregivers / representatives who currently or will assist patient after discharge: COLLINS ZHOU DTR, * Verbal permission to speak to the caregivers and representatives has been obtained from the patient. N/A * Community resources currently utilized None * Please name any agencies selected above. NONE * Additional services required to return to the preadmission environment? No * Can the patient safely return to the preadmission environment? Yes * Has this patient been hospitalized within the prior 30 days at any hospital? No External Providers External Provider: [facility] Next Contact Date: 03/04/2019 Service Request Date: Service Type: Resolution: Reviewer: Comments: Coverage Notice Reviewer: [id number] Daily Notice Issued Date-Time: 03/03/2019 10:00 Notice Type: IM Discharge Notice Notice Delivered To: Patient Relationship to Patient: Icu Registered Nurse Name: Delivery Method: HAND - Hand Delivered Katherine Days: Prior Verbal Notification: Recipient Understood Notice: Yes Recipient Signature: Yes Med Rec Note Co-signed by Attending: Coverage Notice Comment: Reviewer: [id number] Hao Daily Notice Issued Date-Time: 03/03/2019 10:00 Notice Type: Patient Choice Letter Notice Delivered To: Patient Relationship to Patient: Icu Registered Nurse Name: Delivery Method: HAND - Hand Delivered Katherine Days: Prior Verbal Notification: Recipient Understood Notice: Yes Recipient Signature: Yes Med Rec Note Co-signed by Attending: Coverage Notice Comment: SHELTER REHAB OR [facility] INPATIENT REHAB. Last DP export: 03/03/19 12:52 p Patient Name: LAILA KENNEDY Page [id number] at 1341 All edits/amendments must be made on the electronic document DICTATION DATE: 03/04/19 1340 CURB BUILDER: VIRGIL 03/04/19 1340 RPT#: [id number] DC DATE: STATUS: ADM IN [facility] [address] [place] [address] END OF REPORT
--- NOTE | 2019-03-04 13:55 | MORECARE ---
CASE MANAGEMENT DISCHARGE SUMMARY PATIENT: LAILA KENNEDY UNIT: [id number] ADM DATE: 02/27/19 AGE: 78 : 40 SEX: F ROOM/BED: D.4453 AUTHOR: COSMO,DOC PHYSICIAN: REFERRING PHYSICIAN: DESTINI CHRISTY MD DATE OF SERVICE: 03/04/19 Discharge Plan Patient Name: LAILA KENNEDY Facility: [facility]:[place] : 1940 Planned Disposition: Nursing Home Facility Anticipated Discharge Date: 03/04/19 Discharge Date: Expected LOS: 5 Initial Reviewer: [id number] Initial Review Date: 02/27/2019 Generated: 03/04/19 2:55 pm Comments DCP- Discharge Planning Updated by [id number]: Brody Daily on 03/03/19 12:[address] Patient Name: LAILA KENNEDY Admission Status: ER Accout number: [id number] Admission Date: 02-27-2019 : 1940 Admission Diagnosis:NON-ST ELEVATION (NSTEMI) MYOCARDIAL INFARCTION Attending: DESTINI CHRISTY Current LOS: 4 Anticipated DC Date: Planned Disposition: Nursing Home Facility Primary Insurance: MEDICARE A & B PLANNED EXTERNAL PROVIDER: TO BE DETERMINED, WAITING PATIENTS DECISION Discharge Planning Comments: CM MET WITH PT IN ROOM TO DISCUSS DISCHARGE PLANNING AND NEEDS. PT REPORTS LIVING AT HOME INDEPENDENTLY AND ALONE. PT HAS WALKER AND CANE WITH NO MEDICAL EQUIPMENT PROVIDER PREFERENCE. PT HAS NO OUTSIDE SERVICES ASSISTING IN THE HOME. CM DISCUSSED AVAILABILITY OF HOME HEALTH, REHAB SERVICES AND MEDICAL EQUIPMENT. PT IS NOT SURE WHAT SHE NEEDS, BUT THIKS SHE NEEDS REHAB SERVICES. PT DOES NOT WANT INPATIENT REHAB THEY MAKE YOU EXERCISE TOO MUCH. CM DISCUSSED [facility], PROVIDED PT WITH LISTING OF NURSING FACILITY REHAB'S WITHIN 50 MILES OF HER HOME. PT WILL THINK ABOUT HER OPTIONS AND LET CM KNOW. PT SIGNED CONSENT FOR [facility] OR [facility] INPATIENT REHAB AND WILL LET CM KNOW HER CHOICE. PT REPORTS HER DAUGHTER WILL PICK HER UP FOR DISCHARGE HOME. IMPORTANT MESSAGE FROM MEDICARE PROVIDED AND EXPLAINED. CM WAITING PT DECISION REGARDING REHAB SELECTIONS WELL PHYSICAL THERAPY EVALUATION. Shipfitters Supervisor: Brody Daily DCPIA - Discharge Planning Initial Assessment Updated by JESSICA: Brody Daily on 03/03/19 1:46 pm * Is the patient Alert and Oriented? Yes * How many steps to enter\exit or inside your home? * PCP RALPH REECE * Pharmacy [facility] CANNOT REMEMBER * Preadmission Environment Home Alone * ADLs Independent * Equipment Cane Walker * Other Equipment NO MEDICALEQUIPMENT PROVIDER PREFERENCE * List name and contact numbers for known caregivers / representatives who currently or will assist patient after discharge: COLLINS ZHOU DTR, * Verbal permission to speak to the caregivers and representatives has been obtained from the patient. N/A * Community resources currently utilized None * Please name any agencies selected above. NONE * Additional services required to return to the preadmission environment? No * Can the patient safely return to the preadmission environment? Yes * Has this patient been hospitalized within the prior 30 days at any hospital? No Coverage Notice Reviewer: JESSICA Daily Notice Issued Date-Time: 03/03/2019 10:00 Notice Type: IM Discharge Notice Notice Delivered To: Patient Relationship to Patient: Straddle Carrier Operator Name: Delivery Method: HAND - Hand Delivered Katherine Days: Prior Verbal Notification: Recipient Understood Notice: Yes Recipient Signature: Yes Med Rec Note Co-signed by Attending: Coverage Notice Comment: Reviewer: JESSICA Daily Notice Issued Date-Time: 03/03/2019 10:00 Notice Type: Patient Choice Letter Notice Delivered To: Patient Relationship to Patient: Straddle Carrier Operator Name: Delivery Method: HAND - Hand Delivered Katherine Days: Prior Verbal Notification: Recipient Understood Notice: Yes Recipient Signature: Yes Med Rec Note Co-signed by Attending: Coverage Notice Comment: [facility] OR [facility] INPATIENT REHAB. Reviewer: JESSICA Daily Notice Issued Date-Time: 03/04/2019 13:25 Notice Type: Patient Choice Letter Notice Delivered To: Patient Relationship to Patient: Straddle Carrier Operator Name: Delivery Method: HAND - Hand Delivered Katherine Days: Prior Verbal Notification: Recipient Understood Notice: Yes Recipient Signature: Yes Med Rec Note Co-signed by Attending: Coverage Notice Comment: RALPH REZA Reviewer: [id number] Daily Notice Issued Date-Time: 03/04/2019 13:25 Notice Type: IM Discharge Notice Notice Delivered To: Patient Relationship to Patient: Straddle Carrier Operator Name: Delivery Method: HAND - Hand Delivered Katherine Days: Prior Verbal Notification: Recipient Understood Notice: Yes Recipient Signature: Yes Med Rec Note Co-signed by Attending: Coverage Notice Comment: Last DP export: 03/04/19 12:40 p Patient Name: LAILA KENNEDY Page [id number] at 1355 All edits/amendments must be made on the electronic document DICTATION DATE: 03/04/19 135 INDUSTRIAL ENGINEERING ANALYST: VIRGIL 03/04/19 1354 RPT#: [id number] DC DATE: STATUS: ADM IN [facility] [address] [place] [address] END OF REPORT
--- NOTE | 2019-03-04 14:27 | MORECARE ---
CASE MANAGEMENT DISCHARGE SUMMARY PATIENT: LAILA KENNEDY UNIT: [id number] ADM DATE: 02/27/19 AGE: 78 : 40 SEX: F ROOM/BED: D.6597 AUTHOR: COSMO,DOC PHYSICIAN: REFERRING PHYSICIAN: DESTINI CHRISTY MD DATE OF SERVICE: 03/04/19 Discharge Plan Patient Name: LAILA KENNEDY Facility: [facility]:[place] : 1940 Planned Disposition: Intermediate Facility Anticipated Discharge Date: 03/04/19 Discharge Date: Expected LOS: 5 Initial Reviewer: [id number] Initial Review Date: 02/27/2019 Generated: 03/04/19 3:27 pm Comments DCP- Discharge Planning Updated by [id number]: Brody Daily on 03/04/19 1:[address] Patient Name: LAILA KENNEDY Encounter No: [id number] : 1940 Primary Insurance: MEDICARE A & B Anticipated DC Date: 03-04-2019 Planned Disposition: Intermediate Facility External Planned Provider: [facility], MEDICARE REHAB BED DCP follow-up note: CM SPOKE TO BEDSIDE NURSE WHO REPORTS PT'S DAUGHTER CALLED INQUIRING ABOUT PT'S DISCHARGE. CM MET WITH PT IN ROOM, DICUSSED REHAB OPTIONS. PT DOES NOT WANT TO GO TO [facility] OR [facility] INPATIENT REHAB REPORTING THEY MAKE YOU "DO TOO MUCH". PT SHOWED CM LISTING FOR CUSTODIAL FACILITIES, PT ASKED FOR REFERRAL TO [facility], CHOICE SIGNED. IMPORTANT MESSAGE FROM MEDICARE PROVIDED AND DISCUSSED. SAM CALLED COLLINS ZHOU DTR, , WHO THOUGHT PT MIGHT AGREE TO GO TO INPATIENT REHAB, CM EXPLAINED THAT PT SAID SHE DID NOT WANT TO EXERCISE THAT MUCH. DAUGHTER REPORTS BEING AT WORK TODAY AND IF SHE NEEDS TO TRANSPORT, IT WILL BE AFTER 6PM WHEN THEY CAN PICK PT UP TO TAKE TO [place]. CM NOTIFIED STELLA OF [facility], , OF REFERRAL. CM FAXED REFERRAL TO [facility] VIA STELLA AT [phone]. CM WAITING ADMISSION DETERMINATION FROM [facility] FOR REH[facility] IN [place]. Brody Daily, ALFREDO MANGEMENT DCP- Discharge Planning Updated by [id number]: Brody Daily on 03/03/19 12:[address] Patient Name: LAILA KENNEDY Admission Status: ER Accout number: [id number] Admission Date: 02-27-2019 : 1940 Admission Diagnosis:NON-ST ELEVATION (NSTEMI) MYOCARDIAL INFARCTION Attending: DESTINI CHRISTY Current LOS: 4 Anticipated DC Date: Planned Disposition: Intermediate Facility Primary Insurance: MEDICARE A & B PLANNED EXTERNAL PROVIDER: TO BE DETERMINED, WAITING PATIENTS DECISION Discharge Planning Comments: CM MET WITH PT IN ROOM TO DISCUSS DISCHARGE PLANNING AND NEEDS. PT REPORTS LIVING AT HOME INDEPENDENTLY AND ALONE. PT HAS WALKER AND CANE WITH NO MEDICAL EQUIPMENT PROVIDER PREFERENCE. PT HAS NO OUTSIDE SERVICES ASSISTING IN THE HOME. CM DISCUSSED AVAILABILITY OF HOME HEALTH, REHAB SERVICES AND MEDICAL EQUIPMENT. PT IS NOT SURE WHAT SHE NEEDS, BUT THIKS SHE NEEDS REHAB SERVICES. PT DOES NOT WANT INPATIENT REHAB THEY MAKE YOU EXERCISE TOO MUCH. CM DISCUSSED CUSTODIAL REHAB, PROVIDED PT WITH LISTING OF NURSING FACILITY REHAB'S WITHIN 50 MILES OF HER HOME. PT WILL THINK ABOUT HER OPTIONS AND LET CM KNOW. PT SIGNED CONSENT FOR CUSTODIAL REHAB OR [facility] INPATIENT REHAB AND WILL LET CM KNOW HER CHOICE. PT REPORTS HER DAUGHTER WILL PICK HER UP FOR DISCHARGE HOME. IMPORTANT MESSAGE FROM MEDICARE PROVIDED AND EXPLAINED. CM WAITING PT DECISION REGARDING REHAB SELECTIONS WELL PHYSICAL THERAPY EVALUATION. Client Service And Consulting Manager: Brody Daily DCPIA - Discharge Planning Initial Assessment Updated by [email or web address]: Brody Daily on 03/03/19 1:46 pm * Is the patient Alert and Oriented? Yes * How many steps to enter\\exit or inside your home? * PCP RALPH REECE * [facility], PT CANNOT REMEMBER * Preadmission Environment Home Alone * ADLs Independent * Equipment Cane Walker * Other Equipment NO MEDICALEQUIPMENT PROVIDER PREFERENCE * List name and contact numbers for known caregivers / representatives who currently or will assist patient after discharge: COLLINS ZHOU DTR, * Verbal permission to speak to the caregivers and representatives has been obtained from the patient. N/A * Community resources currently utilized None * Please name any agencies selected above. NONE * Additional services required to return to the preadmission environment? No * Can the patient safely return to the preadmission environment? Yes * Has this patient been hospitalized within the prior 30 days at any hospital? No Coverage Notice Reviewer: JESSICA Daily Notice Issued Date-Time: 03/03/2019 10:00 Notice Type: IM Discharge Notice Notice Delivered To: Patient Relationship to Patient: Pst Specialist Name: Delivery Method: HAND - Hand Delivered Katheirne Days: Prior Verbal Notification: Recipient Understood Notice: Yes Recipient Signature: Yes Med Rec Note Co-signed by Attending: Coverage Notice Comment: Reviewer: JESSICA Daily Notice Issued Date-Time: 03/03/2019 10:00 Notice Type: Patient Choice Letter Notice Delivered To: Patient Relationship to Patient: Pst Specialist Name: Delivery Method: HAND - Hand Delivered Katherine Days: Prior Verbal Notification: Recipient Understood Notice: Yes Recipient Signature: Yes Med Rec Note Co-signed by Attending: Coverage Notice Comment: CUSTODIAL REHAB OR [facility] REHAB. Reviewer: JESSICA Daily Notice Issued Date-Time: 03/04/2019 13:25 Notice Type: Patient Choice Letter Notice Delivered To: Patient Relationship to Patient: Pst Specialist Name: Delivery Method: HAND - Hand Delivered Katherine Days: Prior Verbal Notification: Recipient Understood Notice: Yes Recipient Signature: Yes Med Rec Note Co-signed by Attending: Coverage Notice Comment: RALPH REZA Reviewer: JESSICA Daily Notice Issued Date-Time: 03/04/2019 13:25 Notice Type: IM Discharge Notice Notice Delivered To: Patient Relationship to Patient: Pst Specialist Name: Delivery Method: HAND - Hand Delivered Katherine Days: Prior Verbal Notification: Recipient Understood Notice: Yes Recipient Signature: Yes Med Rec Note Co-signed by Attending: Coverage Notice Comment: Last DP export: 03/04/19 12:55 p Patient Name: LAILA KENNEDY Page [id number] at 1427 All edits/amendments must be made on the electronic document DICTATION DATE: 03/04/191426 WORKERS COMPENSATION LEGAL SECRETARY: VIRGIL 03/04/191426 RPT#: [id number] DC DATE: STATUS: ADM IN [facility] [address] [place] [address] END OF REPORT
[2019-03-04] MEDS ORDERED: ZANTAC300 MG PO (15:48)
[2019-03-04 16:38] VITALS: BP 143/79
--- NOTE | 2019-03-04 19:25 | NUR ---
RESUMING PATIENT CARE. PATIENT IS ALERT AND ORIENTED, SITTING UP IN BED. RESPIRATIONS ARE EVEN AND UNLABORED. NO S/S OF DISTRESS. NO C/O PAIN. CALL LIGHT WITHIN REACH. WILL CPOC.
[2019-03-04 20:00] VITALS: BP 150/72
[2019-03-05] VITALS: BP 164/74
[2019-03-05 04:00] VITALS: BP 143/71
[2019-03-05 06:19] LABS: BASOPHILS 0.6 % (0-2); EOSINOPHILS 4.5 % (0-7); HEMATOCRIT 27.3 % (36.0-48.0); HEMOGLOBIN 9.1 g/dL (12-16); LYMPHOCYTES 24.8 % (15-50); MCH 29.7 pg (26.0-34.0); MCHC 33.3 g/dL (31.0-37.0); MCV 89.2 fL (80.0-100.0); MEAN PLATELET VOLUME 10.1 fL (7.4-10.4); MONOCYTES 9.5 % (2-11); NEUTROPHILS 60.6 % (40-80); RBC 3.06 10x6/uL (4.00-5.40); WBC 5.2 10x3/uL (4.8-10.8)
[2019-03-05 06:20] LABS: PLATELET COUNT 308 10x3/uL (130-400)
[2019-03-05 06:59] LABS: ANION GAP 17.2 mmol/L (8-16); CALCIUM 8.8 mg/dL (8.5-10.1); CARBON DIOXIDE 21.5 mmol/L (21.0-32.0); CREATININE - SERUM 1.6 mg/dL (0.6-1.3); POTASSIUM - SERUM 3.7 mmol/L (3.5-5.1)
[2019-03-05 07:31] VITALS: BP 184/84
--- NOTE | 2019-03-05 09:05 | NUR ---
UP AMBULATING WITH PT ASSIST.
[2019-03-05 11:21] VITALS: BP 167/64
--- NOTE | 2019-03-05 14:00 | MORECARE ---
CASE MANAGEMENT DISCHARGE SUMMARY PATIENT: LAILA KENNEDY UNIT: [id number] ADM DATE: 02/27/19 AGE: 78 : 40 SEX: F ROOM/BED: D.9704 AUTHOR: COSMO,DOC PHYSICIAN: REFERRING PHYSICIAN: DESTINI CHRISTY MD DATE OF SERVICE: 03/05/19 Discharge Plan Patient Name: LAILA KENNEDY Facility: [facility]:[place] : 1940 Planned Disposition: Retirement Facility Anticipated Discharge Date: 03/04/19 Discharge Date: Expected LOS: 5 Initial Reviewer: [email or web address] Initial Review Date: 02/27/2019 Generated: 03/05/19 2:59 pm Comments DCP- Discharge Planning Updated by [id number]: Brody Daily on 03/04/19 1:[address] Patient Name: LAILA KENNEDY Encounter No: [id number] : 1940 Primary Insurance: MEDICARE A & B Anticipated DC Date: 03-04-2019 Planned Disposition: Retirement Facility External Planned Provider: [facility], MEDICARE REHAB BED DCP follow-up note: CM SPOKE TO BEDSIDE NURSE WHO REPORTS PT'S DAUGHTER CALLED INQUIRING ABOUT PT'S DISCHARGE. CM MET WITH PT IN ROOM, DICUSSED REHAB OPTIONS. PT DOES NOT WANT TO GO TO [facility] OR [place] INPATIENT REHAB REPORTING THEY MAKE YOU "DO TOO MUCH". PT SHOWED CM LISTING FOR ALF FACILITIES, PT ASKED FOR REFERRAL TO [facility], CHOICE SIGNED. IMPORTANT MESSAGE FROM MEDICARE PROVIDED AND DISCUSSED. SAM CALLED COLLINS ZHOU DTR, , WHO THOUGHT PT MIGHT AGREE TO GO TO INPATIENT REHAB, CM EXPLAINED THAT PT SAID SHE DID NOT WANT TO EXERCISE THAT MUCH. DAUGHTER REPORTS BEING AT WORK TODAY AND IF SHE NEEDS TO TRANSPORT, IT WILL BE AFTER 6PM WHEN THEY CAN PICK PT UP TO TAKE TO [place]. CM NOTIFIED STELLA OF [facility], , OF REFERRAL. CM FAXED REFERRAL TO [facility] VIA STELLA AT [phone]. CM WAITING ADMISSION DETERMINATION FROM [facility] FOR [facility] IN [place]. Brody Daily, ALFRDEO MANGEMENT DCP- Discharge Planning Updated by [id number]: Brody Daily on 03/03/19 12:[address] Patient Name: LAILA KENNEDY Admission Status: ER Accout number: [id number] Admission Date: 02-27-2019 : 1940 Admission Diagnosis:NON-ST ELEVATION (NSTEMI) MYOCARDIAL INFARCTION Attending: DESTINI CHRISTY Current LOS: 4 Anticipated DC Date: Planned Disposition: Retirement Facility Primary Insurance: MEDICARE A & B PLANNED EXTERNAL PROVIDER: TO BE DETERMINED, WAITING PATIENTS DECISION Discharge Planning Comments: CM MET WITH PT IN ROOM TO DISCUSS DISCHARGE PLANNING AND NEEDS. PT REPORTS LIVING AT HOME INDEPENDENTLY AND ALONE. PT HAS WALKER AND CANE WITH NO MEDICAL EQUIPMENT PROVIDER PREFERENCE. PT HAS NO OUTSIDE SERVICES ASSISTING IN THE HOME. CM DISCUSSED AVAILABILITY OF HOME HEALTH, REHAB SERVICES AND MEDICAL EQUIPMENT. PT IS NOT SURE WHAT SHE NEEDS, BUT THIKS SHE NEEDS REHAB SERVICES. PT DOES NOT WANT INPATIENT REHAB THEY MAKE YOU EXERCISE TOO MUCH. CM DISCUSSED ALF REHAB, PROVIDED PT WITH LISTING OF NURSING FACILITY REHAB'S WITHIN 50 MILES OF HER HOME. PT WILL THINK ABOUT HER OPTIONS AND LET CM KNOW. PT SIGNED CONSENT FOR ALF REHAB OR [facility] INPATIENT REHAB AND WILL LET CM KNOW HER CHOICE. PT REPORTS HER DAUGHTER WILL PICK HER UP FOR DISCHARGE HOME. IMPORTANT MESSAGE FROM MEDICARE PROVIDED AND EXPLAINED. CM WAITING PT DECISION REGARDING REHAB SELECTIONS WELL PHYSICAL THERAPY EVALUATION. Varnish Dipper: Brody Daily DCPIA - Discharge Planning Initial Assessment Updated by [id number]: Brody Daily on 03/03/19 1:46 pm * Is the patient Alert and Oriented? Yes * How many steps to enter\\exit or inside your home? * PCP RALPH REECE * [facility], PT CANNOT REMEMBER * Preadmission Environment Home Alone * ADLs Independent * Equipment Cane Walker * Other Equipment NO MEDICALEQUIPMENT PROVIDER PREFERENCE * List name and contact numbers for known caregivers / representatives who currently or will assist patient after discharge: COLLINS ZHOU DTR, * Verbal permission to speak to the caregivers and representatives has been obtained from the patient. N/A * Community resources currently utilized None * Please name any agencies selected above. NONE * Additional services required to return to the preadmission environment? No * Can the patient safely return to the preadmission environment? Yes * Has this patient been hospitalized within the prior 30 days at any hospital? No External Providers External Provider: [facility] Next Contact Date: 03/05/2019 Service Request Date: Service Type: Resolution: Reviewer: Comments: Coverage Notice Reviewer: JESSICA Daily Notice Issued Date-Time: 03/03/2019 10:00 Notice Type: IM Discharge Notice Notice Delivered To: Patient Relationship to Patient: Mdm Sr Name: Delivery Method: HAND - Hand Delivered Katherine Days: Prior Verbal Notification: Recipient Understood Notice: Yes Recipient Signature: Yes Med Rec Note Co-signed by Attending: Coverage Notice Comment: Reviewer: JESSICA Daily Notice Issued Date-Time: 03/03/2019 10:00 Notice Type: Patient Choice Letter Notice Delivered To: Patient Relationship to Patient: Mdm Sr Name: Delivery Method: HAND - Hand Delivered Katherine Days: Prior Verbal Notification: Recipient Understood Notice: Yes Recipient Signature: Yes Med Rec Note Co-signed by Attending: Coverage Notice Comment: ALF REHAB OR [facility] REHAB. Reviewer: JESSICA Daily Notice Issued Date-Time: 03/04/2019 13:25 Notice Type: Patient Choice Letter Notice Delivered To: Patient Relationship to Patient: Mdm Sr Name: Delivery Method: HAND - Hand Delivered Katherine Days: Prior Verbal Notification: Recipient Understood Notice: Yes Recipient Signature: Yes Med Rec Note Co-signed by Attending: Coverage Notice Comment: RALPH REZA Reviewer: JESSICA Daily Notice Issued Date-Time: 03/04/2019 13:25 Notice Type: IM Discharge Notice Notice Delivered To: Patient Relationship to Patient: Mdm Sr Name: Delivery Method: HAND - Hand Delivered Katherine Days: Prior Verbal Notification: Recipient Understood Notice: Yes Recipient Signature: Yes Med Rec Note Co-signed by Attending: Coverage Notice Comment: Last DP export: 03/04/19 1:27 p Patient Name: LAILA KENNEDY Page [id number] at 1400 All edits/amendments must be made on the electronic document DICTATION DATE: 03/05/19 1352 MC KAY STITCHER: DM 03/05/19 1359 RPT#: [id number] DC DATE: STATUS: ADM IN [facility] [address] [place] [address] END OF REPORT
--- NOTE | 2019-03-05 14:19 | MORECARE ---
CASE MANAGEMENT DISCHARGE SUMMARY PATIENT: LAILA KENNEDY UNIT: [id number] ADM DATE: 02/27/19 AGE: 78 : 40 SEX: F ROOM/BED: D.1221 AUTHOR: COSMO,DOC PHYSICIAN: REFERRING PHYSICIAN: DESTINI CHRISTY MD DATE OF SERVICE: 03/05/19 Discharge Plan Patient Name: LAILA KENNEDY Facility: [facility]:[place] : 1940 Planned Disposition: Prison Facility Anticipated Discharge Date: 03/04/19 Discharge Date: Expected LOS: 5 Initial Reviewer: [id number] Initial Review Date: 02/27/2019 Generated: 03/05/19 3:19 pm Comments DCP- Discharge Planning Updated by [email or web address]: Brody Daily on 03/05/19 1:[address] Patient Name: LAILA KENNEDY Encounter No: [id number] : 1940 Primary Insurance: MEDICARE A & B Anticipated DC Date: 03-04-2019 Planned Disposition: Prison Facility External Planned Provider: [facility], MEDICARE REHAB BED DCP follow-up note: CM RECEIVED CALL FROM STELLA OF [facility], THEY WANT A RANJIT SCREENING AND ASKED TO KNOW WHAT STAGE OF CKD PT WAS IN. CM SPOKE TO BEDSIDE NURSE WHO REPORTS PT NOW SAYS SHE WANTS [facility] IN [place]. CM SPOKE TO PT IN ROOM WHO WOULD NOW PREFER REHAB AT [facility] BUT WILL GO TO [facility] IF INPATIENT REHAB IN [place] DECLINES. PT ASSISTED WITH COMPLETING RANJIT SCREENING. CM OBTAINED SIGNATURES FROM DOMINIQUE TRIANA, INFORMED HER OF [facility]'S REQUEST FOR RAJNIT SCREENING. CM FAXED COMPELTED RANJIT SCREENING WITH SUPPORTING DOCUMENTS TO [facility] AT [phone]. CM FAXED REFERRAL TO [facility] VIA STELLA AT [phone]. CM CALLED [facility] AT [phone], LEFT MESSAGES FOR KADE MARIE AND MARGIE BUSH REGARDING REFERRAL. CM FAXED REFERRAL TO [facility] AT [phone]. CM WAITING RANJIT SCREENING DETERMINATION, ADMISSION DETERMINATION FROM [facility] IN [place] AND ADMISSION DETERMINATION FROM [facility] INPAT[facility] IN [place]. ALFREDO Davidson DCP- Discharge Planning Updated by [id number]: Brody [place] on 03/04/19 1:[address] Patient Name: LAILA KENNEDY Encounter No: [id number] : 1940 Primary Insurance: MEDICARE A & B Anticipated DC Date: 03-04-2019 Planned Disposition: Prison Facility External Planned Provider: [facility], MEDICARE REHAB BED DCP follow-up note: CM SPOKE TO BEDSIDE NURSE WHO REPORTS PT'S DAUGHTER CALLED INQUIRING ABOUT PT'S DISCHARGE. CM MET WITH PT IN ROOM, DICUSSED REHAB OPTIONS. PT DOES NOT WANT TO GO TO [facility] OR [facility] INPATIENT REHAB REPORTING THEY MAKE YOU "DO TOO MUCH". PT SHOWED CM LISTING FOR [facility] FACILITIES, PT ASKED FOR REFERRAL TO [facility], CHOICE SIGNED. IMPORTANT MESSAGE FROM MEDICARE PROVIDED AND DISCUSSED. CM CALLED COLLINS ZHOU, DTR, , WHO THOUGHT PT MIGHT AGREE TO GO TO INPATIENT REHAB, CM EXPLAINED THAT PT SAID SHE DID NOT WANT TO EXERCISE THAT MUCH. DAUGHTER REPORTS BEING AT WORK TODAY AND IF SHE NEEDS TO TRANSPORT, IT WILL BE AFTER 6PM WHEN THEY CAN PICK PT UP TO TAKE TO [place]. CM NOTIFIED STELL[facility] OF [facility], , OF REFERRAL. CM FAXED REFERRAL TO [facility]IA STELL[facility] AT [phone]. CM WAITING ADMISSION DETERMINATION FROM [facility] IN [place]. ALFREDO Davidson DCP- Discharge Planning Updated by [id number]: Brody Daily on 03/03/19 12:[address] Patient Name: LAILA KENNEDY Admission Status: ER Accout number: [id number] Admission Date: 02-27-2019 : 1940 Admission Diagnosis:NON-ST ELEVATION (NSTEMI) MYOCARDIAL INFARCTION Attending: DESTINI CHRISTY Current LOS: 4 Anticipated DC Date: Planned Disposition: Prison Facility Primary Insurance: MEDICARE A & B PLANNED EXTERNAL PROVIDER: TO BE DETERMINED, WAITING PATIENTS DECISION Discharge Planning Comments: CM MET WITH PT IN ROOM TO DISCUSS DISCHARGE PLANNING AND NEEDS. PT REPORTS LIVING AT HOME INDEPENDENTLY AND ALONE. PT HAS WALKER AND CANE WITH NO MEDICAL EQUIPMENT PROVIDER PREFERENCE. PT HAS NO OUTSIDE SERVICES ASSISTING IN THE HOME. CM DISCUSSED AVAILABILITY OF HOME HEALTH, REHAB SERVICES AND MEDICAL EQUIPMENT. PT IS NOT SURE WHAT SHE NEEDS, BUT THIKS SHE NEEDS REHAB SERVICES. PT DOES NOT WANT INPATIENT REHAB THEY MAKE YOU EXERCISE TOO MUCH. CM DISCUSSED [facility], PROVIDED PT WITH LISTING OF NURSING FACILITY REHAB'S WITHIN 50 MILES OF HER HOME. PT WILL THINK ABOUT HER OPTIONS AND LET CM KNOW. PT SIGNED CONSENT FOR [facility] OR [facility] AND WILL LET CM KNOW HER CHOICE. PT REPORTS HER DAUGHTER WILL PICK HER UP FOR DISCHARGE HOME. IMPORTANT MESSAGE FROM MEDICARE PROVIDED AND EXPLAINED. CM WAITING PT DECISION REGARDING REHAB SELECTIONS WELL PHYSICAL THERAPY EVALUATION. Environmental Health Physician: Brody Daily DCPIA - Discharge Planning Initial Assessment Updated by [id number]: Brody Daily on 03/03/19 1:46 pm * Is the patient Alert and Oriented? Yes * How many steps to enter\\exit or inside your home? * PCP RALPH REECE * Pharmacy [facility], PT CANNOT REMEMBER * Preadmission Environment Home Alone * ADLs Independent * Equipment Cane Walker * Other Equipment NO MEDICALEQUIPMENT PROVIDER PREFERENCE * List name and contact numbers for known caregivers / representatives who currently or will assist patient after discharge: COLLINS ZHOU, DTR, * Verbal permission to speak to the caregivers and representatives has been obtained from the patient. N/A * Community resources currently utilized None * Please name any agencies selected above. NONE * Additional services required to return to the preadmission environment? No * Can the patient safely return to the preadmission environment? Yes * Has this patient been hospitalized within the prior 30 days at any hospital? No External Providers External Provider: OTHER-OTHER Next Contact Date: 03/05/2019 Service Request Date: Service Type: Resolution: Reviewer: Comments: Coverage Notice Reviewer: [id number] Hao Daily Notice Issued Date-Time: 03/04/2019 13:25 Notice Type: Patient Choice Letter Notice Delivered To: Patient Relationship to Patient: Soaking Tank Worker Name: Delivery Method: HAND - Hand Delivered Katherine Days: Prior Verbal Notification: Recipient Understood Notice: Yes Recipient Signature: Yes Med Rec Note Co-signed by Attending: Coverage Notice Comment: RALPH REZA Reviewer: [id number] Hao Daily Notice Issued Date-Time: 03/03/2019 10:00 Notice Type: Patient Choice Letter Notice Delivered To: Patient Relationship to Patient: Soaking Tank Worker Name: Delivery Method: HAND - Hand Delivered Katherine Days: Prior Verbal Notification: Recipient Understood Notice: Yes Recipient Signature: Yes Med Rec Note Co-signed by Attending: Coverage Notice Comment: [facility] OR [facility]. Reviewer: [id number] Daily Notice Issued Date-Time: 03/04/2019 13:25 Notice Type: IM Discharge Notice Notice Delivered To: Patient Relationship to Patient: Soaking Tank Worker Name: Delivery Method: HAND - Hand Delivered Katherine Days: Prior Verbal Notification: Recipient Understood Notice: Yes Recipient Signature: Yes Med Rec Note Co-signed by Attending: Coverage Notice Comment: Reviewer: [id number] Daily Notice Issued Date-Time: 03/03/2019 10:00 Notice Type: IM Discharge Notice Notice Delivered To: Patient Relationship to Patient: Soaking Tank Worker Name: Delivery Method: HAND - Hand Delivered Katherine Days: Prior Verbal Notification: Recipient Understood Notice: Yes Recipient Signature: Yes Med Rec Note Co-signed by Attending: Coverage Notice Comment: Last DP export: 03/05/19 12:59 p Patient Name: LAILA KENNEDY Page [id number] at 1419 All edits/amendments must be made on the electronic document DICTATION DATE: 03/05/191417 TIMBER CRUISER: VIRGIL 03/05/191417 RPT#: [id number] DC DATE: STATUS: ADM IN [facility] [address] [place] [address] END OF REPORT
--- NOTE | 2019-03-05 15:02 | MORECARE ---
CASE MANAGEMENT DISCHARGE SUMMARY PATIENT: LAILA KENNEDY UNIT: [id number] ADM DATE: 02/27/19 AGE: 78 : 40 SEX: F ROOM/BED: D.1172 AUTHOR: COSMO,DOC PHYSICIAN: REFERRING PHYSICIAN: DESTINI CHRISTY MD DATE OF SERVICE: 03/05/19 Discharge Plan Patient Name: LAILA KENNEDY Facility: [facility]:[place] : 1940 Planned Disposition: Correction Facility Anticipated Discharge Date: 03/04/19 Discharge Date: Expected LOS: 5 Initial Reviewer: [id number] Initial Review Date: 02/27/2019 Generated: 03/05/19 4:02 pm Comments DCP- Discharge Planning Updated by [email or web address]: Brody Daily on 03/05/19 1:[address] Patient Name: LAILA KENNEDY Encounter No: [id number] : 1940 Primary Insurance: MEDICARE A & B Anticipated DC Date: 03-04-2019 Planned Disposition: Correction Facility External Planned Provider: [facility], MEDICARE REHAB BED DCP follow-up note: CM RECEIVED CALL FROM STELLA OF [facility], THEY WANT A RANJIT SCREENING AND ASKED TO KNOW WHAT STAGE OF CKD PT WAS IN. CM SPOKE TO BEDSIDE NURSE WHO REPORTS PT NOW SAYS SHE WANTS INPATIENT REHAB AT [facility] IN [place]. CM SPOKE TO PT IN ROOM WHO WOULD NOW PREFER REHAB AT [facility] BUT WILL GO TO [facility] IF INPATIENT REHAB IN [place] DECLINES. PT ASSISTED WITH COMPLETING RANJIT SCREENING. CM OBTAINED SIGNATURES FROM DOMINIQUE TRIANA, INFORMED HER OF [facility]'S REQUEST FOR RANJIT SCREENING. CM FAXED COMPELTED RANJIT SCREENING WITH SUPPORTING DOCUMENTS TO [facility] AT [phone]. CM FAXED REFERRAL TO [facility] [place] VIA [facility] AT [phone]. CM CALLED [facility] AT [phone], LEFT MESSAGES FOR KADE MARIE AND MARGIE BUSH REGARDING REFERRAL. CM FAXED REFERRAL TO [facility] AT [phone]. CM WAITING RANJIT SCREENING DETERMINATION, ADMISSION DETERMINATION FROM [facility] IN [place] AND ADMISSION DETERMINATION FROM [facility] INPAT[facility] IN [place]. ALFREDO Davidson DCP- Discharge Planning Updated by [id number]: Brody [place] on 03/04/19 1:[address] Patient Name: LAILA KENNEDY Encounter No: [id number] : 1940 Primary Insurance: MEDICARE A & B Anticipated DC Date: 03-04-2019 Planned Disposition: Correction Facility External Planned Provider: [facility], MEDICARE REHAB BED DCP follow-up note: CM SPOKE TO BEDSIDE NURSE WHO REPORTS PT'S DAUGHTER CALLED INQUIRING ABOUT PT'S DISCHARGE. CM MET WITH PT IN ROOM, DICUSSED REHAB OPTIONS. PT DOES NOT WANT TO GO TO [facility] OR [facility] INPATIENT REHAB REPORTING THEY MAKE YOU "DO TOO MUCH". PT SHOWED CM LISTING FOR INTERMEDIATE FACILITIES, PT ASKED FOR REFERRAL TO [facility], CHOICE SIGNED. IMPORTANT MESSAGE FROM MEDICARE PROVIDED AND DISCUSSED. CM CALLED COLLINS ZHOU, DTR, , WHO THOUGHT PT MIGHT AGREE TO GO TO INPATIENT REHAB, CM EXPLAINED THAT PT SAID SHE DID NOT WANT TO EXERCISE THAT MUCH. DAUGHTER REPORTS BEING AT WORK TODAY AND IF SHE NEEDS TO TRANSPORT, IT WILL BE AFTER 6PM WHEN THEY CAN PICK PT UP TO TAKE TO [place]. CM NOTIFIED STELLA OF [facility], , OF REFERRAL. CM FAXED REFERRAL TO [facility]IA [facility] AT [phone]. CM WAITING ADMISSION DETERMINATION FROM [facility] IN [place]. ALFREDO Davidson DCP- Discharge Planning Updated by [id number]: Brody Daily on 03/03/19 12:[address] Patient Name: LAILA KENNEDY Admission Status: ER Accout number: [id number] Admission Date: 02-27-2019 : 1940 Admission Diagnosis:NON-ST ELEVATION (NSTEMI) MYOCARDIAL INFARCTION Attending: DESTINI CHRISTY Current LOS: 4 Anticipated DC Date: Planned Disposition: Correction Facility Primary Insurance: MEDICARE A & B PLANNED EXTERNAL PROVIDER: TO BE DETERMINED, WAITING PATIENTS DECISION Discharge Planning Comments: CM MET WITH PT IN ROOM TO DISCUSS DISCHARGE PLANNING AND NEEDS. PT REPORTS LIVING AT HOME INDEPENDENTLY AND ALONE. PT HAS WALKER AND CANE WITH NO MEDICAL EQUIPMENT PROVIDER PREFERENCE. PT HAS NO OUTSIDE SERVICES ASSISTING IN THE HOME. CM DISCUSSED AVAILABILITY OF HOME HEALTH, REHAB SERVICES AND MEDICAL EQUIPMENT. PT IS NOT SURE WHAT SHE NEEDS, BUT THIKS SHE NEEDS REHAB SERVICES. PT DOES NOT WANT INPATIENT REHAB THEY MAKE YOU EXERCISE TOO MUCH. CM DISCUSSED INTERMEDIATE REHAB, PROVIDED PT WITH LISTING OF NURSING FACILITY REHAB'S WITHIN 50 MILES OF HER HOME. PT WILL THINK ABOUT HER OPTIONS AND LET CM KNOW. PT SIGNED CONSENT FOR INTERMEDIATE REHAB OR [facility] INPAT[facility] RE[facility] AND WILL LET CM KNOW HER CHOICE. PT REPORTS HER DAUGHTER WILL PICK HER UP FOR DISCHARGE HOME. IMPORTANT MESSAGE FROM MEDICARE PROVIDED AND EXPLAINED. CM WAITING PT DECISION REGARDING REHAB SELECTIONS WELL PHYSICAL THERAPY EVALUATION. Wood Block Artist: Brody Daily DCPIA - Discharge Planning Initial Assessment Updated by [id number]: Brody Daily on 03/03/19 1:46 pm * Is the patient Alert and Oriented? Yes * How many steps to enter\\exit or inside your home? * PCP DR. JORGE MIRELES [place] * Pharmacy [facility], PT CANNOT REMEMBER * Preadmission Environment Home Alone * ADLs Independent * Equipment Cane Walker * Other Equipment NO MEDICALEQUIPMENT PROVIDER PREFERENCE * List name and contact numbers for known caregivers / representatives who currently or will assist patient after discharge: COLLINS ZHOU, DTR, * Verbal permission to speak to the caregivers and representatives has been obtained from the patient. N/A * Community resources currently utilized None * Please name any agencies selected above. NONE * Additional services required to return to the preadmission environment? No * Can the patient safely return to the preadmission environment? Yes * Has this patient been hospitalized within the prior 30 days at any hospital? No External Providers External Provider: OTHER-OTHER Next Contact Date: 03/05/2019 Service Request Date: Service Type: Resolution: Reviewer: Comments: Coverage Notice Reviewer: [id number] Hao Daily Notice Issued Date-Time: 03/03/2019 10:00 Notice Type: IM Discharge Notice Notice Delivered To: Patient Relationship to Patient: Prototyper Name: Delivery Method: HAND - Hand Delivered Katherine Days: Prior Verbal Notification: Recipient Understood Notice: Yes Recipient Signature: Yes Med Rec Note Co-signed by Attending: Coverage Notice Comment: Reviewer: [id number] Hao Daily Notice Issued Date-Time: 03/03/2019 10:00 Notice Type: Patient Choice Letter Notice Delivered To: Patient Relationship to Patient: Prototyper Name: Delivery Method: HAND - Hand Delivered Katherine Days: Prior Verbal Notification: Recipient Understood Notice: Yes Recipient Signature: Yes Med Rec Note Co-signed by Attending: Coverage Notice Comment: INTERMEDIATE REHAB OR [facility] INPAT[facility] RE[facility]. Reviewer: [id number] Hao Daily Notice Issued Date-Time: 03/04/2019 13:25 Notice Type: Patient Choice Letter Notice Delivered To: Patient Relationship to Patient: Prototyper Name: Delivery Method: HAND - Hand Delivered Katherine Days: Prior Verbal Notification: Recipient Understood Notice: Yes Recipient Signature: Yes Med Rec Note Co-signed by Attending: Coverage Notice Comment: [facility] Reviewer: [id number] Hao Daily Notice Issued Date-Time: 03/04/2019 13:25 Notice Type: IM Discharge Notice Notice Delivered To: Patient Relationship to Patient: Prototyper Name: Delivery Method: HAND - Hand Delivered Katherine Days: Prior Verbal Notification: Recipient Understood Notice: Yes Recipient Signature: Yes Med Rec Note Co-signed by Attending: Coverage Notice Comment: Last DP export: 03/05/19 1:19 p Patient Name: LAILA KENNEDY Page [id number] at 1502 All edits/amendments must be made on the electronic document DICTATION DATE: 03/05/19 1501 SPECIAL EDUCATION CURRICULUM SPECIALIST: VIRGIL 03/05/19 1501 RPT#: [id number] DC DATE: STATUS: ADM IN [facility] [address] [place] [address] END OF REPORT
--- NOTE | 2019-03-05 15:18 | MORECARE ---
CASE MANAGEMENT DISCHARGE SUMMARY PATIENT: LAILA KENNEDY UNIT: [id number] ADM DATE: 02/27/19 AGE: 78 : 40 SEX: F ROOM/BED: D.9948 AUTHOR: COSMO,DOC PHYSICIAN: REFERRING PHYSICIAN: DESTINI CHRISTY MD DATE OF SERVICE: 03/05/19 Discharge Plan Patient Name: LAILA KENNEDY Facility: [facility]:[place] : 1940 Planned Disposition: Fpc Facility Anticipated Discharge Date: 03/04/19 Discharge Date: Expected LOS: 5 Initial Reviewer: [id number] Initial Review Date: 02/27/2019 Generated: 03/05/19 4:17 pm Comments DCP- Discharge Planning Updated by [id number]: Brody Daily on 03/05/19 2:[address] Patient Name: LAILA KENNEDY Encounter No: [id number] : 1940 Primary Insurance: MEDICARE A & B Anticipated DC Date: 03-04-2019 Planned Disposition: Fpc Facility External Planned Provider: [facility], MEDICARE REHAB BED DCP follow-up note: CM RECEIVED CALL FROM STELLA OF [facility], THEY WANT A RANJIT SCREENING AND ASKED TO KNOW WHAT STAGE OF CKD PT WAS IN. CM SPOKE TO BEDSIDE NURSE WHO REPORTS PT NOW SAYS SHE WANTS [facility] [place]. CM SPOKE TO PT IN ROOM WHO WOULD NOW PREFER REHAB AT [facility] BUT WILL GO TO [place] IF INPATIENT REHAB IN [place] DECLINES. PT ASSISTED WITH COMPLETING RANJIT SCREENING. CM OBTAINED SIGNATURES FROM DOMINIQUE TRIANA, INFORMED HER OF [place]'S REQUEST FOR RANJIT SCREENING. CM FAXED COMPELTED RANJIT SCREENING WITH SUPPORTING DOCUMENTS TO [facility] AT [phone]. CM FAXED REFERRAL TO [place] VIA STELLA AT [phone]. CM CALLED [facility] AT [phone], LEFT MESSAGES FOR KADE MARIE AND MARGIE BUSH REGARDING REFERRAL. CM FAXED REFERRAL TO [facility] AT [phone]. CM WAITING RANJIT SCREENING DETERMINATION, ADMISSION DETERMINATION FROM [facility] IN [place] AND ADMISSION DETERMINATION FROM [facility] IN [place]. Brody Daily, CASE MANGEMENT Appended by Brody Daily on 03/05/2019 15:11 CDT: CM RECEIVED CALL FROM BERNARDO OF [facility] IN [place] WHO ASKED FOR REFERRAL TO BE FAXED TO [phone]. KADE DIRECTED CM TO CALL [facility] IN [place] AND ASK FOR EVALUATION TODAY AND THEY CAN HOPEFULLY TAKE PT TODAY. CM FAXED REFERRAL REQUESTED. CM CALLED MARTHA AT [facility], , WHO ASKED FOR REFERRAL TO BE FAXED TO HER AND SHE WILL HAVE PT SCREENED SOON POSSIBLE TODAY. CM FAXED REFERRAL TO [facility] AT [phone]. CM WAITING RANJIT SCREENING DETERMINATION, ADMISSION DETERMINATION FROM [facility] IN [place] AND ADMISSION DETERMINATION FROM [facility] IN [place]. [place]dy [place], ALFREDO MANGEMENT DCP- Discharge Planning Updated by [id number]: Brody Daily on 03/04/19 1:[address] Patient Name: LAILA KENNEDY Encounter No: [id number] : 1940 Primary Insurance: MEDICARE A & B Anticipated DC Date: 03-04-2019 Planned Disposition: Fpc Facility External Planned Provider: [facility], MEDICARE REHAB BED DCP follow-up note: CM SPOKE TO BEDSIDE NURSE WHO REPORTS PT'S DAUGHTER CALLED INQUIRING ABOUT PT'S DISCHARGE. CM MET WITH PT IN ROOM, DICUSSED REHAB OPTIONS. PT DOES NOT WANT TO GO TO [facility] OR [facility] INPATIENT REHAB REPORTING THEY MAKE YOU "DO TOO MUCH". PT SHOWED CM LISTING FOR RESIDENTIAL FACILITIES, PT ASKED FOR REFERRAL TO [facility], CHOICE SIGNED. IMPORTANT MESSAGE FROM MEDICARE PROVIDED AND DISCUSSED. CM CALLED [facility] DTR, , WHO THOUGHT PT MIGHT AGREE TO GO TO INPATIENT REHAB, CM EXPLAINED THAT PT SAID SHE DID NOT WANT TO EXERCISE THAT MUCH. DAUGHTER REPORTS BEING AT WORK TODAY AND IF SHE NEEDS TO TRANSPORT, IT WILL BE AFTER 6PM WHEN THEY CAN PICK PT UP TO TAKE TO [place]. CM NOTIFIED STELLA OF [facility], , OF REFERRAL. CM FAXED REFERRAL TO [facility]IA STELL[facility] AT [phone]. CM WAITING ADMISSION DETERMINATION FROM [facility] IN [place]. Brody Daily, ALFREDO [facility] DCP- Discharge Planning Updated by [id number]: Brody Daily on 03/03/19 12:[address] Patient Name: LAILA KENNEDY Admission Status: ER Accout number: [id number] Admission Date: 02-27-2019 : 1940 Admission Diagnosis:NON-ST ELEVATION (NSTEMI) MYOCARDIAL INFARCTION Attending: DESTINI CHRISTY Current LOS: 4 Anticipated DC Date: Planned Disposition: Fpc Facility Primary Insurance: MEDICARE A & B PLANNED EXTERNAL PROVIDER: TO BE DETERMINED, WAITING PATIENTS DECISION Discharge Planning Comments: CM MET WITH PT IN ROOM TO DISCUSS DISCHARGE PLANNING AND NEEDS. PT REPORTS LIVING AT HOME INDEPENDENTLY AND ALONE. PT HAS WALKER AND CANE WITH NO MEDICAL EQUIPMENT PROVIDER PREFERENCE. PT HAS NO OUTSIDE SERVICES ASSISTING IN THE HOME. CM DISCUSSED AVAILABILITY OF HOME HEALTH, REHAB SERVICES AND MEDICAL EQUIPMENT. PT IS NOT SURE WHAT SHE NEEDS, BUT THIKS SHE NEEDS REHAB SERVICES. PT DOES NOT WANT INPATIENT REHAB THEY MAKE YOU EXERCISE TOO MUCH. CM DISCUSSED RESIDENTIAL REHAB, PROVIDED PT WITH LISTING OF NURSING FACILITY REHAB'S WITHIN 50 MILES OF HER HOME. PT WILL THINK ABOUT HER OPTIONS AND LET CM KNOW. PT SIGNED CONSENT FOR RESIDENTIAL REHAB OR [facility] INPATIENT RE[facility] AND WILL LET CM KNOW HER CHOICE. PT REPORTS HER DAUGHTER WILL PICK HER UP FOR DISCHARGE HOME. IMPORTANT MESSAGE FROM MEDICARE PROVIDED AND EXPLAINED. CM WAITING PT DECISION REGARDING REHAB SELECTIONS WELL PHYSICAL THERAPY EVALUATION. Change Consultant: Brody Daily DCPIA - Discharge Planning Initial Assessment Updated by [id number]: Brody Daily on 03/03/19 1:46 pm * Is the patient Alert and Oriented? Yes * How many steps to enter\\exit or inside your home? * PCP DR. JORGE MIRELES, [place] * Pharmacy [facility], PT CANNOT REMEMBER * Preadmission Environment Home Alone * ADLs Independent * Equipment Cane Walker * Other Equipment NO MEDICALEQUIPMENT PROVIDER PREFERENCE * List name and contact numbers for known caregivers / representatives who currently or will assist patient after discharge: COLLINS ZHOU DTR, * Verbal permission to speak to the caregivers and representatives has been obtained from the patient. N/A * Community resources currently utilized None * Please name any agencies selected above. NONE * Additional services required to return to the preadmission environment? No * Can the patient safely return to the preadmission environment? Yes * Has this patient been hospitalized within the prior 30 days at any hospital? No Coverage Notice Reviewer: JESSICA Daily Notice Issued Date-Time: 03/04/2019 13:25 Notice Type: Patient Choice Letter Notice Delivered To: Patient Relationship to Patient: Warp Drawer Name: Delivery Method: HAND - Hand Delivered Katherine Days: Prior Verbal Notification: Recipient Understood Notice: Yes Recipient Signature: Yes Med Rec Note Co-signed by Attending: Coverage Notice Comment: RALPH REZA Reviewer: JESSICA Daily Notice Issued Date-Time: 03/03/2019 10:00 Notice Type: Patient Choice Letter Notice Delivered To: Patient Relationship to Patient: Warp Drawer Name: Delivery Method: HAND - Hand Delivered Katherine Days: Prior Verbal Notification: Recipient Understood Notice: Yes Recipient Signature: Yes Med Rec Note Co-signed by Attending: Coverage Notice Comment: RESIDENTIAL REHAB OR [facility] RE[facility]. Reviewer: JESSICA Daily Notice Issued Date-Time: 03/04/2019 13:25 Notice Type: IM Discharge Notice Notice Delivered To: Patient Relationship to Patient: Warp Drawer Name: Delivery Method: HAND - Hand Delivered Katherine Days: Prior Verbal Notification: Recipient Understood Notice: Yes Recipient Signature: Yes Med Rec Note Co-signed by Attending: Coverage Notice Comment: Reviewer: JESSICA Daily Notice Issued Date-Time: 03/03/2019 10:00 Notice Type: IM Discharge Notice Notice Delivered To: Patient Relationship to Patient: Warp Drawer Name: Delivery Method: HAND - Hand Delivered Katherine Days: Prior Verbal Notification: Recipient Understood Notice: Yes Recipient Signature: Yes Med Rec Note Co-signed by Attending: Coverage Notice Comment: Last DP export: 03/05/19 2:02 p Patient Name: LAILA KENNEDY Page [id number] at 1518 All edits/amendments must be made on the electronic document DICTATION DATE: 03/05/191516 STAFF EDUCATOR: VIRGIL 03/05/191516 RPT#: [id number] DC DATE: STATUS: ADM IN [facility] [address] [place] [address] END OF REPORT
[2019-03-05 15:24] VITALS: BP 147/67
--- NOTE | 2019-03-05 15:52 | MORECARE ---
CASE MANAGEMENT DISCHARGE SUMMARY PATIENT: LAILA KENNEDY UNIT: [id number] ADM DATE: 02/27/19 AGE: 78 : 40 SEX: F ROOM/BED: D.9952 AUTHOR: COSMO,DOC PHYSICIAN: REFERRING PHYSICIAN: DESTINI CHRISTY MD DATE OF SERVICE: 03/05/19 Discharge Plan Patient Name: LAILA KENNEDY Facility: [facility]:[place] : 1940 Planned Disposition: Assisted Facility Anticipated Discharge Date: 03/04/19 Discharge Date: Expected LOS: 5 Initial Reviewer: [id number] Initial Review Date: 02/27/2019 Generated: 03/05/19 4:52 pm Comments DCP- Discharge Planning Updated by [id number]: Brody Daily on 03/05/19 2:[address] Patient Name: LAILA KENNEDY Encounter No: [id number] : 1940 Primary Insurance: MEDICARE A & B Anticipated DC Date: 03-04-2019 Planned Disposition: Assisted Facility External Planned Provider: [facility], MEDICARE REHAB BED DCP follow-up note: CM RECEIVED CALL FROM STELLA OF [facility], THEY WANT A RANJIT SCREENING AND ASKED TO KNOW WHAT STAGE OF CKD PT WAS IN. CM SPOKE TO BEDSIDE NURSE WHO REPORTS PT NOW SAYS SHE WANTS [facility] [place]. CM SPOKE TO PT IN ROOM WHO WOULD NOW PREFER REHAB AT [facility] BUT WILL GO TO [place] IF INPATIENT REHAB IN [place] DECLINES. PT ASSISTED WITH COMPLETING RAJNIT SCREENING. CM OBTAINED SIGNATURES FROM DOMINIQUE TRIANA, INFORMED HER OF [place]'S REQUEST FOR RANJIT SCREENING. CM FAXED COMPELTED RANJIT SCREENING WITH SUPPORTING DOCUMENTS TO [facility] AT [phone]. CM FAXED REFERRAL TO [place] VIA [facility] AT [phone]. CM CALLED [facility] AT [phone], LEFT MESSAGES FOR KADE MARIE AND MARGIE BUSH REGARDING REFERRAL. CM FAXED REFERRAL TO [facility] AT [phone]. CM WAITING RANJIT SCREENING DETERMINATION, ADMISSION DETERMINATION FROM [facility] IN [place] AND ADMISSION DETERMINATION FROM [facility] IN [place]. Brody Daily, CASE MANGEMENT Appended by Brody Daily on 03/05/2019 15:11 CDT: CM RECEIVED CALL FROM BERNARDO OF [facility] IN [place] WHO ASKED FOR REFERRAL TO BE FAXED TO [phone]. KADE DIRECTED CM TO CALL [facility] IN [place] AND ASK FOR EVALUATION TODAY AND THEY CAN HOPEFULLY TAKE PT TODAY. CM FAXED REFERRAL REQUESTED. CM CALLED MARTHA AT [facility], , WHO ASKED FOR REFERRAL TO BE FAXED TO HER AND SHE WILL HAVE PT SCREENED SOON POSSIBLE TODAY. CM FAXED REFERRAL TO [facility] AT [phone]. CM WAITING RANJIT SCREENING DETERMINATION, ADMISSION DETERMINATION FROM [facility] IN [place] AND ADMISSION DETERMINATION FROM [facility] [place]. Brody Daily, CASE MANGEMENT Appended by Brody Daily on 03/05/2019 15:46 CDT: CM RECEIVED RANJIT SCREENING DETERMINATION, HOSPITAL DISCHARGE EXEMPT. CM FAXED DOCUMENT TO STELLA [facility]AXI[facility] [place] AND REQUESTED ADMISSION DETERMINATION. CM WAITING ADMISSION DETERMINATION FROM [facility] IN [place] AND SCREENING / ADMISSION DETERMINATION FROM [facility] [place]. Brody Daily, CASE MANGEMENT DCP- Discharge Planning Updated by [id number]: Brody Daily on 03/04/19 1:[address] Patient Name: LAILA KENNEDY Encounter No: [id number] : 1940 Primary Insurance: MEDICARE A & B Anticipated DC Date: 03-04-2019 Planned Disposition: Assisted Facility External Planned Provider: [facility], MEDICARE REHAB BED DCP follow-up note: CM SPOKE TO BEDSIDE NURSE WHO REPORTS PT'S DAUGHTER CALLED INQUIRING ABOUT PT'S DISCHARGE. CM MET WITH PT IN ROOM, DICUSSED REHAB OPTIONS. PT DOES NOT WANT TO GO TO [facility] OR [facility] INPATIENT REHAB REPORTING THEY MAKE YOU "DO TOO MUCH". PT SHOWED CM LISTING FOR FPC FACILITIES, PT ASKED FOR REFERRAL TO [facility], CHOICE SIGNED. IMPORTANT MESSAGE FROM MEDICARE PROVIDED AND DISCUSSED. CM CALLED [facility], , WHO THOUGHT PT MIGHT AGREE TO GO TO INPATIENT REHAB, CM EXPLAINED THAT PT SAID SHE DID NOT WANT TO EXERCISE THAT MUCH. DAUGHTER REPORTS BEING AT WORK TODAY AND IF SHE NEEDS TO TRANSPORT, IT WILL BE AFTER 6PM WHEN THEY CAN PICK PT UP TO TAKE TO [place]. CM NOTIFIED STELLA OF [place], , OF REFERRAL. CM FAXED REFERRAL TO [facility]IA STELL[facility] AT [phone]. CM WAITING ADMISSION DETERMINATION FROM [facility] IN [place]. ALFREDO Davidson DCP- Discharge Planning Updated by [id number]: Brody Daily on 03/03/19 12:[address] Patient Name: LAILA KENNEDY Admission Status: ER Accout number: [id number] Admission Date: 02-27-2019 : 1940 Admission Diagnosis:NON-ST ELEVATION (NSTEMI) MYOCARDIAL INFARCTION Attending: DESTINI CHRISTY Current LOS: 4 Anticipated DC Date: Planned Disposition: Assisted Facility Primary Insurance: MEDICARE A & B PLANNED EXTERNAL PROVIDER: TO BE DETERMINED, WAITING PATIENTS DECISION Discharge Planning Comments: CM MET WITH PT IN ROOM TO DISCUSS DISCHARGE PLANNING AND NEEDS. PT REPORTS LIVING AT HOME INDEPENDENTLY AND ALONE. PT HAS WALKER AND CANE WITH NO MEDICAL EQUIPMENT PROVIDER PREFERENCE. PT HAS NO OUTSIDE SERVICES ASSISTING IN THE HOME. CM DISCUSSED AVAILABILITY OF HOME HEALTH, REHAB SERVICES AND MEDICAL EQUIPMENT. PT IS NOT SURE WHAT SHE NEEDS, BUT THIKS SHE NEEDS REHAB SERVICES. PT DOES NOT WANT INPATIENT REHAB THEY MAKE YOU EXERCISE TOO MUCH. CM DISCUSSED [facility] RE[facility], PROVIDED PT WITH LISTING OF NURSING FACILITY REHAB'S WITHIN 50 MILES OF HER HOME. PT WILL THINK ABOUT HER OPTIONS AND LET CM KNOW. PT SIGNED CONSENT FOR [facility] RE[facility]AB OR [facility] INPAT[facility] REH[facility] AND WILL LET CM KNOW HER CHOICE. PT REPORTS HER DAUGHTER WILL PICK HER UP FOR DISCHARGE HOME. IMPORTANT MESSAGE FROM MEDICARE PROVIDED AND EXPLAINED. CM WAITING PT DECISION REGARDING REHAB SELECTIONS WELL PHYSICAL THERAPY EVALUATION. Teachers Assistant: Brody Daily DCPIA - Discharge Planning Initial Assessment Updated by [id number]: Brody Daily on 03/03/19 1:46 pm * Is the patient Alert and Oriented? Yes * How many steps to enter\\exit or inside your home? * PCP DR. JORGE MIRELES, [place] * Pharmacy [facility], PT CANNOT REMEMBER * Preadmission Environment Home Alone * ADLs Independent * Equipment Cane Walker * Other Equipment NO MEDICALEQUIPMENT PROVIDER PREFERENCE * List name and contact numbers for known caregivers / representatives who currently or will assist patient after discharge: COLLINS ZHOU, DTR, * Verbal permission to speak to the caregivers and representatives has been obtained from the patient. N/A * Community resources currently utilized None * Please name any agencies selected above. NONE * Additional services required to return to the preadmission environment? No * Can the patient safely return to the preadmission environment? Yes * Has this patient been hospitalized within the prior 30 days at any hospital? No Coverage Notice Reviewer: JESSICA Daily Notice Issued Date-Time: 03/04/2019 13:25 Notice Type: Patient Choice Letter Notice Delivered To: Patient Relationship to Patient: Front End Technician Name: Delivery Method: HAND - Hand Delivered Katherine Days: Prior Verbal Notification: Recipient Understood Notice: Yes Recipient Signature: Yes Med Rec Note Co-signed by Attending: Coverage Notice Comment: RALPH REZA Reviewer: JESSICA Daily Notice Issued Date-Time: 03/03/2019 10:00 Notice Type: Patient Choice Letter Notice Delivered To: Patient Relationship to Patient: Front End Technician Name: Delivery Method: HAND - Hand Delivered Katherine Days: Prior Verbal Notification: Recipient Understood Notice: Yes Recipient Signature: Yes Med Rec Note Co-signed by Attending: Coverage Notice Comment: [facility] OR [facility]. Reviewer: JESSICA Daily Notice Issued Date-Time: 03/04/2019 13:25 Notice Type: IM Discharge Notice Notice Delivered To: Patient Relationship to Patient: Front End Technician Name: Delivery Method: HAND - Hand Delivered Katherine Days: Prior Verbal Notification: Recipient Understood Notice: Yes Recipient Signature: Yes Med Rec Note Co-signed by Attending: Coverage Notice Comment: Reviewer: JESSICA Daily Notice Issued Date-Time: 03/03/2019 10:00 Notice Type: IM Discharge Notice Notice Delivered To: Patient Relationship to Patient: Front End Technician Name: Delivery Method: HAND - Hand Delivered Katherine Days: Prior Verbal Notification: Recipient Understood Notice: Yes Recipient Signature: Yes Med Rec Note Co-signed by Attending: Coverage Notice Comment: Last DP export: 03/05/19 2:18 p Patient Name: LAILA KENNEDY Page [id number] at 1552 All edits/amendments must be made on the electronic document DICTATION DATE: 03/05/19 155 CONTROLLER INSTRUCTOR: VIRGIL 03/05/191551 RPT#: [id number] DC DATE: STATUS: ADM IN [facility] [address] [place] [address] END OF REPORT
[2019-03-05 16:09] LABS: UPE RAND - ALBUMIN 43.7 % (()); UPE RAND - ALPHA 2 GLOBULIN 12.2 % (()); UPE RAND - BETA GLOBULIN 21.7 % (()); UPE RAND - GAMMA GLOBULIN 16.4 % (())
--- NOTE | 2019-03-05 16:34 | MORECARE ---
CASE MANAGEMENT DISCHARGE SUMMARY PATIENT: LAILA KENNEDY UNIT: [id number] ADM DATE: 02/27/19 AGE: 78 : 40 SEX: F ROOM/BED: D.8852 AUTHOR: COSMO,DOC PHYSICIAN: REFERRING PHYSICIAN: DESTINI CHRISTY MD DATE OF SERVICE: 03/05/19 Discharge Plan Patient Name: LAILA KENNEDY Facility: [facility]:[place] : 1940 Planned Disposition: Inpatient Rehab Anticipated Discharge Date: 03/05/19 Discharge Date: Expected LOS: 6 Initial Reviewer: [id number] Initial Review Date: 02/27/2019 Generated: 03/05/19 5:34 pm Comments DCP- Discharge Planning Updated by [id number]: Brody Daily on 03/05/19 2:[address] Patient Name: LAILA KENNEDY Encounter No: [id number] : 1940 Primary Insurance: MEDICARE A & B Anticipated DC Date: 03-04-2019 Planned Disposition: Usp Facility External Planned Provider: [facility], MEDICARE REHAB BED DCP follow-up note: CM RECEIVED CALL FROM STELLA OF [facility], THEY WANT A RANJIT SCREENING AND ASKED TO KNOW WHAT STAGE OF CKD PT WAS IN. CM SPOKE TO BEDSIDE NURSE WHO REPORTS PT NOW SAYS SHE WANTS INPATIENT REHAB AT [facility] IN [place]. CM SPOKE TO PT IN ROOM WHO WOULD NOW PREFER REHAB AT [facility] BUT WILL GO TO [place] IF INPATIENT REHAB IN [place] DECLINES. PT ASSISTED WITH COMPLETING RANJIT SCREENING. CM OBTAINED SIGNATURES FROM DOMINIQUE TRIANA, INFORMED HER OF [facility]'S REQUEST FOR RANJIT SCREENING. CM FAXED COMPELTED RANJIT SCREENING WITH SUPPORTING DOCUMENTS TO [facility] AT [phone]. CM FAXED REFERRAL TO [place] VIA STELLA AT [phone]. CM CALLED [facility] AT [phone], LEFT MESSAGES FOR KADE MARIE AND MARGIE BUSH REGARDING REFERRAL. CM FAXED REFERRAL TO [facility] AT [phone]. CM WAITING RANJIT SCREENING DETERMINATION, ADMISSION DETERMINATION FROM [facility] IN [place] AND ADMISSION DETERMINATION FROM [facility] INPATIENT [facility] IN [place]. Brody Daily, CASE MANGEMENT Appended by Brody Daily on 03/05/2019 15:11 CDT: CM RECEIVED CALL FROM BERNARDO OF [facility] IN [place] WHO ASKED FOR REFERRAL TO BE FAXED TO [phone]. KADE DIRECTED CM TO CALL [facility] IN[facility] IN [place] AND ASK FOR EVALUATION TODAY AND THEY CAN HOPEFULLY TAKE PT TODAY. CM FAXED REFERRAL REQUESTED. CM CALLED MARTHA AT [facility], , WHO ASKED FOR REFERRAL TO BE FAXED TO HER AND SHE WILL HAVE PT SCREENED SOON POSSIBLE TODAY. CM FAXED REFERRAL TO [facility] AT [phone]. CM WAITING RANJIT SCREENING DETERMINATION, ADMISSION DETERMINATION FROM [facility] IN [place] AND ADMISSION DETERMINATION FROM [facility] INPATIENT [facility] IN [place]. Brody Daily, CASE MANGEMENT Appended by Brody Daily on 03/05/2019 15:46 CDT: CM RECEIVED RANJIT SCREENING DETERMINATION, HOSPITAL DISCHARGE EXEMPT. CM FAXED DOCUMENT TO STELLA GAXIOLA [place] AND REQUESTED ADMISSION DETERMINATION. CM WAITING ADMISSION DETERMINATION FROM [facility] IN [place] AND SCREENING / ADMISSION DETERMINATION FROM [facility] INPATIENT [facility] IN [place]. Brody Daily, CASE MANGEMENT DCP- Discharge Planning Updated by [id number]: Brody Daily on 03/04/19 1:[address] Patient Name: LAILA KENNEDY Encounter No: [id number] : 1940 Primary Insurance: MEDICARE A & B Anticipated DC Date: 03-04-2019 Planned Disposition: Usp Facility External Planned Provider: [facility], MEDICARE REHAB BED DCP follow-up note: CM SPOKE TO BEDSIDE NURSE WHO REPORTS PT'S DAUGHTER CALLED INQUIRING ABOUT PT'S DISCHARGE. CM MET WITH PT IN ROOM, DICUSSED REHAB OPTIONS. PT DOES NOT WANT TO GO TO [facility] OR [facility] INPATIENT REHAB REPORTING THEY MAKE YOU "DO TOO MUCH". PT SHOWED CM LISTING FOR [facility] FACILITIES, PT ASKED FOR REFERRAL TO [facility], CHOICE SIGNED. IMPORTANT MESSAGE FROM MEDICARE PROVIDED AND DISCUSSED. CM CALLED COLLINS ZHOU DTR, , WHO THOUGHT PT MIGHT AGREE TO GO TO INPATIENT REHAB, CM EXPLAINED THAT PT SAID SHE DID NOT WANT TO EXERCISE THAT MUCH. DAUGHTER REPORTS BEING AT WORK TODAY AND IF SHE NEEDS TO TRANSPORT, IT WILL BE AFTER 6PM WHEN THEY CAN PICK PT UP TO TAKE TO [place]. CM NOTIFIED STELLA OF [place], , OF REFERRAL. CM FAXED REFERRAL TO [facility]IA STE[facility] AT [phone]. CM WAITING ADMISSION DETERMINATION FROM [facility] IN [place]. ALFREDO Davidson DCP- Discharge Planning Updated by [id number]: Brody Daily on 03/03/19 12:[address] Patient Name: LAILA KENNEDY Admission Status: ER Accout number: [id number] Admission Date: 02-27-2019 : 1940 Admission Diagnosis:NON-ST ELEVATION (NSTEMI) MYOCARDIAL INFARCTION Attending: DESTINI CHRISTY Current LOS: 4 Anticipated DC Date: Planned Disposition: Usp Facility Primary Insurance: MEDICARE A & B PLANNED EXTERNAL PROVIDER: TO BE DETERMINED, WAITING PATIENTS DECISION Discharge Planning Comments: CM MET WITH PT IN ROOM TO DISCUSS DISCHARGE PLANNING AND NEEDS. PT REPORTS LIVING AT HOME INDEPENDENTLY AND ALONE. PT HAS WALKER AND CANE WITH NO MEDICAL EQUIPMENT PROVIDER PREFERENCE. PT HAS NO OUTSIDE SERVICES ASSISTING IN THE HOME. CM DISCUSSED AVAILABILITY OF HOME HEALTH, REHAB SERVICES AND MEDICAL EQUIPMENT. PT IS NOT SURE WHAT SHE NEEDS, BUT THIKS SHE NEEDS REHAB SERVICES. PT DOES NOT WANT INPATIENT REHAB THEY MAKE YOU EXERCISE TOO MUCH. CM DISCUSSED [facility], PROVIDED PT WITH LISTING OF NURSING FACILITY REHAB'S WITHIN 50 MILES OF HER HOME. PT WILL THINK ABOUT HER OPTIONS AND LET CM KNOW. PT SIGNED CONSENT FOR [facility] OR [facility]PATIENT RE[facility] AND WILL LET CM KNOW HER CHOICE. PT REPORTS HER DAUGHTER WILL PICK HER UP FOR DISCHARGE HOME. IMPORTANT MESSAGE FROM MEDICARE PROVIDED AND EXPLAINED. CM WAITING PT DECISION REGARDING REHAB SELECTIONS WELL PHYSICAL THERAPY EVALUATION. Network Internship: Brody Daily DCPIA - Discharge Planning Initial Assessment Updated by [id number]: Brody Daily on 03/03/19 1:46 pm * Is the patient Alert and Oriented? Yes * How many steps to enter\\exit or inside your home? * PCP DR. JORGE MIRELES, [place] * Pharmacy [facility], PT CANNOT REMEMBER * Preadmission Environment Home Alone * ADLs Independent * Equipment Cane Walker * Other Equipment NO MEDICALEQUIPMENT PROVIDER PREFERENCE * List name and contact numbers for known caregivers / representatives who currently or will assist patient after discharge: COLLINS ZHOU, DTR, * Verbal permission to speak to the caregivers and representatives has been obtained from the patient. N/A * Community resources currently utilized None * Please name any agencies selected above. NONE * Additional services required to return to the preadmission environment? No * Can the patient safely return to the preadmission environment? Yes * Has this patient been hospitalized within the prior 30 days at any hospital? No Coverage Notice Reviewer: JESSICA Daily Notice Issued Date-Time: 03/04/2019 13:25 Notice Type: Patient Choice Letter Notice Delivered To: Patient Relationship to Patient: Welding Engineer Name: Delivery Method: HAND - Hand Delivered Katherine Days: Prior Verbal Notification: Recipient Understood Notice: Yes Recipient Signature: Yes Med Rec Note Co-signed by Attending: Coverage Notice Comment: RALPH REZA Reviewer: JESSICA Daily Notice Issued Date-Time: 03/03/2019 10:00 Notice Type: Patient Choice Letter Notice Delivered To: Patient Relationship to Patient: Welding Engineer Name: Delivery Method: HAND - Hand Delivered Katherine Days: Prior Verbal Notification: Recipient Understood Notice: Yes Recipient Signature: Yes Med Rec Note Co-signed by Attending: Coverage Notice Comment: [facility] OR [facility]. Reviewer: JESSICA Daily Notice Issued Date-Time: 03/04/2019 13:25 Notice Type: IM Discharge Notice Notice Delivered To: Patient Relationship to Patient: Welding Engineer Name: Delivery Method: HAND - Hand Delivered Katherine Days: Prior Verbal Notification: Recipient Understood Notice: Yes Recipient Signature: Yes Med Rec Note Co-signed by Attending: Coverage Notice Comment: Reviewer: JESSICA Daily Notice Issued Date-Time: 03/03/2019 10:00 Notice Type: IM Discharge Notice Notice Delivered To: Patient Relationship to Patient: Welding Engineer Name: Delivery Method: HAND - Hand Delivered Katherine Days: Prior Verbal Notification: Recipient Understood Notice: Yes Recipient Signature: Yes Med Rec Note Co-signed by Attending: Coverage Notice Comment: Last DP export: 03/05/19 2:52 p Patient Name: LAILA KENNEDY Page [id number] at 1634 All edits/amendments must be made on the electronic document DICTATION DATE: 03/05/19 1634 JOGGER OPERATOR: VIRGIL 03/05/19 1634 RPT#: [id number] DC DATE: STATUS: ADM IN [facility] [address] [place] [address] END OF REPORT
[2019-03-05] MEDS ORDERED: PLAVIX75 MG PO (16:39)
--- NOTE | 2019-03-05 16:47 | MORECARE ---
CASE MANAGEMENT DISCHARGE SUMMARY PATIENT: LAILA KENNEDY UNIT: [id number] ADM DATE: 02/27/19 AGE: 78 : 40 SEX: F ROOM/BED: D.7863 AUTHOR: COSMO,DOC PHYSICIAN: REFERRING PHYSICIAN: DESTINI CHRISTY MD DATE OF SERVICE: 03/05/19 Discharge Plan Patient Name: LAILA KENNEDY Facility: [facility]:[place] : 1940 Planned Disposition: Inpatient Rehab Anticipated Discharge Date: 03/05/19 Discharge Date: Expected LOS: 6 Initial Reviewer: [id number] Initial Review Date: 02/27/2019 Generated: 03/05/19 5:47 pm Comments DCP- Discharge Planning Updated by [id number]: Brody Daily on 03/05/19 3:[address] Patient Name: LAILA KENNEDY Encounter No: [id number] : 1940 Primary Insurance: MEDICARE A & B Anticipated DC Date: 03-05-2019 Planned Disposition: Inpatient Rehab External Planned Provider: [facility], [place] DCP follow-up note: CM RECEIVED CALL FROM MARTHA OF [facility], PT HAS BEEN ACCEPTED FOR INPATIENT REHAB. CM CALLED [facility] IN [place], , SPOKE TO BERNARDO WHO INFORMED CM THAT PT CAN COME TODAY TO ROOM 253-A. THEY ARE A 24 HOUR FACLITY AND PT CAN COME ANY HOUR OF THE NIGHT. CM CALLED PT'S DAUGHTER, RAFY, , ADVISED OF ACCEPTANCE, RAFY REPORTS FAMILY WILL CREAMERY WORKER PT AND TRANSPORT TO [facility] THIS EVENING, THEY HAVE ADDRESS OF FACILITY PT HAS BEEN THERE MANY TIMES. CM NOTIFIED DOMINIQUE TRIANA WHO WILL DISCHARGE PATIENT TODAY. CM NOTIFIED BEDSIDE NURSE. CM NOTIFIED PT IN ROOM, PT WILLING AND WANTS DISCHARGE TODAY TO REHAB. CM RECEIVED CALL FROM STELLA GAXIOLA [facility], INFORMED THEY CAN ACCEPT PT FOR REHAB. CM EXPLAINED THAT PT HAS ACCEPTED REHAB AT [facility] AND WILL GO TONIGHT. NURSE REPORT TO BE CALL[facility] TO [facility], . FAMILY WILL CREAMERY WORKER THIS EVENING FOR TRANSPORT TO REHAB. Brody Daily, CASE MANAGEMENT DCP- Discharge Planning Updated by [id number]: Brody Daily on 03/05/19 2:[address] Patient Name: LAILA KENNEDY Encounter No: [id number] : 1940 Primary Insurance: MEDICARE A & B Anticipated DC Date: 03-04-2019 Planned Disposition: Retirement Facility External Planned Provider: [facility], MEDICARE REHAB BED DCP follow-up note: CM RECEIVED CALL FROM STELLA OF [facility], THEY WANT A RANJIT SCREENING AND ASKED TO KNOW WHAT STAGE OF CKD PT WAS IN. CM SPOKE TO BEDSIDE NURSE WHO REPORTS PT NOW SAYS SHE WANTS INPATIENT REHAB AT [facility] IN [place]. CM SPOKE TO PT IN ROOM WHO WOULD NOW PREFER REHAB AT [facility] BUT WILL GO TO [facility] IF INPATIENT REHAB IN [place] DECLINES. PT ASSISTED WITH COMPLETING RANJIT SCREENING. CM OBTAINED SIGNATURES FROM DOMINIQUE TRIANA, INFORMED HER OF [facility]'S REQUEST FOR RANJIT SCREENING. CM FAXED COMPELTED RANJIT SCREENING WITH SUPPORTING DOCUMENTS TO [facility] AT [phone]. CM FAXED REFERRAL TO [facility] VIA STELLA AT [phone]. CM CALLED [facility] AT [phone], LEFT MESSAGES FOR KADE MARIE AND MARGIE BUSH REGARDING REFERRAL. CM FAXED REFERRAL TO [facility] AT [phone]. CM WAITING RANJIT SCREENING DETERMINATION, ADMISSION DETERMINATION FROM [facility] IN [place] AND ADMISSION DETERMINATION FROM [facility] INPAT[facility] IN [place]. Brody Daily, CASE MANGEMENT Appended by Brody Daily on 03/05/2019 15:11 CDT: CM RECEIVED CALL FROM BERNARDO OF [facility] IN [place] WHO ASKED FOR REFERRAL TO BE FAXED TO [phone]. KADE DIRECTED CM TO CALL [facility] IN [place] AND ASK FOR EVALUATION TODAY AND THEY CAN HOPEFULLY TAKE PT TODAY. CM FAXED REFERRAL REQUESTED. CM CALLED MARTHA AT [facility], , WHO ASKED FOR REFERRAL TO BE FAXED TO HER AND SHE WILL HAVE PT SCREENED SOON POSSIBLE TODAY. CM FAXED REFERRAL TO [facility] AT [phone]. CM WAITING RANJIT SCREENING DETERMINATION, ADMISSION DETERMINATION FROM [facility] IN [place] AND ADMISSION DETERMINATION FROM [facility] INPAT[facility] IN [place]. Brody Daily ALFREDO MANGEMENT Appended by Brody Daily on 03/05/2019 15:46 CDT: CM RECEIVED RANJIT SCREENING DETERMINATION, HOSPITAL DISCHARGE EXEMPT. CM FAXED DOCUMENT TO STELLA OF [facility] AND REQUESTED ADMISSION DETERMINATION. CM WAITING ADMISSION DETERMINATION FROM [facility] IN [place] AND SCREENING / ADMISSION DETERMINATION FROM [facility] IN[facility] IN [place]. ALFREDO Davidson RADHAEMENT DCP- Discharge Planning Updated by [id number]: Brody Daily on 03/04/19 1:[address] Patient Name: LAILA KENNEDY Encounter No: [id number] : 1940 Primary Insurance: MEDICARE A & B Anticipated DC Date: 03-04-2019 Planned Disposition: Retirement Facility External Planned Provider: [facility], MEDICARE REHAB BED DCP follow-up note: CM SPOKE TO BEDSIDE NURSE WHO REPORTS PT'S DAUGHTER CALLED INQUIRING ABOUT PT'S DISCHARGE. CM MET WITH PT IN ROOM, DICUSSED REHAB OPTIONS. PT DOES NOT WANT TO GO TO [facility] OR [facility] INPAT[facility] RE[facility] REPORTING THEY MAKE YOU "DO TOO MUCH". PT SHOWED CM LISTING FOR LONG-TERM FACILITIES, PT ASKED FOR REFERRAL TO [facility], CHOICE SIGNED. IMPORTANT MESSAGE FROM MEDICARE PROVIDED AND DISCUSSED. CM CALLED COLLINS ZHOU, DTR, , WHO THOUGHT PT MIGHT AGREE TO GO TO INPATIENT REHAB, CM EXPLAINED THAT PT SAID SHE DID NOT WANT TO EXERCISE THAT MUCH. DAUGHTER REPORTS BEING AT WORK TODAY AND IF SHE NEEDS TO TRANSPORT, IT WILL BE AFTER 6PM WHEN THEY CAN PICK PT UP TO TAKE TO [place]. CM NOTIFIED SERGIO, , OF REFERRAL. CM FAXED REFERRAL TO [facility]IA STELLA AT [phone]. CM WAITING ADMISSION DETERMINATION FROM [facility] IN [place]. ALFREDO Davidson RADHANIKOS DCP- Discharge Planning Updated by [id number]: Brody Daily on 03/03/19 12:[address] Patient Name: LAILA KENNEDY Admission Status: ER Accout number: [id number] Admission Date: 02-27-2019 : 1940 Admission Diagnosis:NON-ST ELEVATION (NSTEMI) MYOCARDIAL INFARCTION Attending: DESTINI CHRISTY Current LOS: 4 Anticipated DC Date: Planned Disposition: Retirement Facility Primary Insurance: MEDICARE A & B PLANNED EXTERNAL PROVIDER: TO BE DETERMINED, WAITING PATIENTS DECISION Discharge Planning Comments: CM MET WITH PT IN ROOM TO DISCUSS DISCHARGE PLANNING AND NEEDS. PT REPORTS LIVING AT HOME INDEPENDENTLY AND ALONE. PT HAS WALKER AND CANE WITH NO MEDICAL EQUIPMENT PROVIDER PREFERENCE. PT HAS NO OUTSIDE SERVICES ASSISTING IN THE HOME. CM DISCUSSED AVAILABILITY OF HOME HEALTH, REHAB SERVICES AND MEDICAL EQUIPMENT. PT IS NOT SURE WHAT SHE NEEDS, BUT THIKS SHE NEEDS REHAB SERVICES. PT DOES NOT WANT INPATIENT REHAB THEY MAKE YOU EXERCISE TOO MUCH. CM DISCUSSED LONG-TERM REHAB, PROVIDED PT WITH LISTING OF NURSING FACILITY REHAB'S WITHIN 50 MILES OF HER HOME. PT WILL THINK ABOUT HER OPTIONS AND LET CM KNOW. PT SIGNED CONSENT FOR LONG-TERM REHAB OR [facility] INPAT[facility] RE[facility] AND WILL LET CM KNOW HER CHOICE. PT REPORTS HER DAUGHTER WILL PICK HER UP FOR DISCHARGE HOME. IMPORTANT MESSAGE FROM MEDICARE PROVIDED AND EXPLAINED. CM WAITING PT DECISION REGARDING REHAB SELECTIONS WELL PHYSICAL THERAPY EVALUATION. Mineral Technologist: Brody Daily DCPIA - Discharge Planning Initial Assessment Updated by [id number]: Brody Daily on 03/03/19 1:46 pm * Is the patient Alert and Oriented? Yes * How many steps to enter\\exit or inside your home? * PCP DR. JORGE MIRELES [place] * Pharmacy [facility], PT CANNOT REMEMBER * Preadmission Environment Home Alone * ADLs Independent * Equipment Cane Walker * Other Equipment NO MEDICALEQUIPMENT PROVIDER PREFERENCE * List name and contact numbers for known caregivers / representatives who currently or will assist patient after discharge: COLLINS ZHOU DTR, * Verbal permission to speak to the caregivers and representatives has been obtained from the patient. N/A * Community resources currently utilized None * Please name any agencies selected above. NONE * Additional services required to return to the preadmission environment? No * Can the patient safely return to the preadmission environment? Yes * Has this patient been hospitalized within the prior 30 days at any hospital? No Coverage Notice Reviewer: [id number] Hao Daily Notice Issued Date-Time: 03/04/2019 13:25 Notice Type: Patient Choice Letter Notice Delivered To: Patient Relationship to Patient: Sales Representative Consultant Name: Delivery Method: HAND - Hand Delivered Katherine Days: Prior Verbal Notification: Recipient Understood Notice: Yes Recipient Signature: Yes Med Rec Note Co-signed by Attending: Coverage Notice Comment: RALPH REZA Reviewer: [id number] Daily Notice Issued Date-Time: 03/03/2019 10:00 Notice Type: Patient Choice Letter Notice Delivered To: Patient Relationship to Patient: Sales Representative Consultant Name: Delivery Method: HAND - Hand Delivered Katherine Days: Prior Verbal Notification: Recipient Understood Notice: Yes Recipient Signature: Yes Med Rec Note Co-signed by Attending: Coverage Notice Comment: LONG-TERM REHAB OR MERGED WITH [facility]. Reviewer: JESSICA Daily Notice Issued Date-Time: 03/04/2019 13:25 Notice Type: IM Discharge Notice Notice Delivered To: Patient Relationship to Patient: Sales Representative Consultant Name: Delivery Method: HAND - Hand Delivered Katherine Days: Prior Verbal Notification: Recipient Understood Notice: Yes Recipient Signature: Yes Med Rec Note Co-signed by Attending: Coverage Notice Comment: Reviewer: JESSICA Daily Notice Issued Date-Time: 03/03/2019 10:00 Notice Type: IM Discharge Notice Notice Delivered To: Patient Relationship to Patient: Sales Representative Consultant Name: Delivery Method: HAND - Hand Delivered Katherine Days: Prior Verbal Notification: Recipient Understood Notice: Yes Recipient Signature: Yes Med Rec Note Co-signed by Attending: Coverage Notice Comment: Last DP export: 03/05/19 3:34 p Patient Name: LAILA KENNEDY Page [id number] at 1647 All edits/amendments must be made on the electronic document DICTATION DATE: 03/05/191645 SAFE DEPOSIT ATTENDANT: VIRGIL 03/05/191645 RPT#: [id number] DC DATE: STATUS: ADM IN [facility] [address] [place] [address] END OF REPORT
--- NOTE | 2019-03-05 19:21 | NUR ---
RESUMING PATIENT CARE. PATIENT IS ALERT AND ORIENTED, SITTING UP IN BED. RESPIRATIONS ARE EVEN AND UNLABORED. NO S/S OF DISTRESS. NO C/O PAIN. CALL LIGHT WITHIN REACH.
== END 2019-03-05 21:05 | DRG 249 ==
LOC: D.ER 17:44 → D.M2 19:11
PROVIDERS: Family Medicine; Internal Medicine Cardiovascular Disease; Internal Medicine Nephrology; ADMIT Internal Medicine Nephrology; ATTEND Internal Medicine Nephrology
PROC: B206YZZ Plain Radiography of Right and Left Heart using Other Contrast (ICD-10-PCS; 2019-03-02)
PROC: 4A023N7 Measurement of Cardiac Sampling and Pressure, Left Heart, Percutaneous Approach (ICD-10-PCS; principal; 2019-03-02 07:57)
PROC: 02703DZ Dilation of Coronary Artery, One Artery with Intraluminal Device, Percutaneous Approach (ICD-10-PCS; 2019-03-02 07:57)
DX: I21.4 Non-ST elevation (NSTEMI) myocardial infarction (principal); N17.9 Acute kidney failure, unspecified; N39.0 Urinary tract infection, site not specified; F17.213 Nicotine dependence, cigarettes, with withdrawal; I65.22 Occlusion and stenosis of left carotid artery; D64.9 Anemia, unspecified; E11.9 Type 2 diabetes mellitus without complications; E78.5 Hyperlipidemia, unspecified; I12.9 Hypertensive chronic kidney disease with stage 1 through stage 4 chronic kidney disease, or unspecified chronic kidney disease; N18.9 Chronic kidney disease, unspecified

== ENCOUNTER 2019-05-26 11:26 | Outpatient (CLI) | payer MEDICARE, OTHER ==
[~2019-05-26] VITALS: Ht 156.2 cm; Wt 59.5 kg
--- NOTE | ~2019-05-26 | HEMODYNAMI ---
PATIENT:LAILA KENNEDY MEDICAL RECORD: [id number] : 40 LOCATION:[facility] ADMISSION DATE: 05/26/19 Generatedon:05/26/201914:51 Patient name: LAILA KENNEDY Patient #: [id number] SSN: D OB: 1940 Date of study: 05/26/2019 Page: Of Hemodynamic Procedure Report Patient Data Patient Demographics Procedure consent was obtained First Name: LAILA Gender: Female Last Name: BRENT : 1940 Patient #: [id number] Age: 78 year(s) Race: Unknown Additional ID: [id number] Contact details [address]: [address] [place] [address] [facility] [address] State: [place] City: [place] Zip code: [address] Past Medical History Allergies: No known allergies Admission Admission Data Admission Date: 05/26/2019 Admission Time: 11:26 Weight (lbs.): 132.28 Weight (kg.): 60 Lab Results Lab Result Date: 05/26/2019 Lab Result Time: 0:00 Biochemistry Name Units Result Min Max BUN mg/dl 38 --(----)-* 7 18 Creatinine mg/dl 1.8 --(----)-* 0.6 1.3 eGFR ml/min 29 *-(----)-- 90 120 NONAFRICAN CBC Name Units Result Min Max Hematocrit % 31 *-(----)-- 42 54 Hemoglobin g/dl 10.5 *-(----)-- 13.5 17.5 Procedure Procedure Types Cath Procedure Diagnostic Procedure PPM/ICD PPM Dual Implant Procedure Description Procedure Date Procedure Date: 05/26/2019 Procedure Start Time: 14:22 Procedure End Time: 14:49 Procedure Staff Name Function Oziel Nguyen MD Performing Physician Eduar Sanchez MD Assisting physician Thomas Nelson RT Monitor Dorothy North RT Scrub Lucy Brewer RN Nurse Procedure Data Cath Procedure Fluoroscopy Diagnostic fluoroscopy Total fluoroscopy Time: 3 time: 3 min min Diagnostic fluoroscopy Total fluoroscopy dose: dose: 60.36 mGy 60.36 mGy Contrast Material Contrast Material Type Amount (ml) Isovue 300 0 Estimated blood loss: 5 ml Procedure Complications No complications Procedure Medications Medication Administration Route Dosage 0.9% NaCl I.V. 100 ml/hr Oxygen etCO2 Nasal cannula 2 l/min Lidocaine 1% added to field 20 Ancef (1Gm/50ml NS) I.V.P.B 1 g Ancef Irrigation Topical 1 g (1gm/500ml NS) Versed I.V. 2 mg Fentanyl I.V. 100 mcg Versed I.V. 2 mg Fentanyl I.V. 50 mcg Versed I.V. 2 mg Fentanyl I.V. 50 mcg Fentanyl I.V. 50 mcg Hemodynamics Rest HGB: 10.5 (g/dl) Heart Rate: 75 (bpm) Snapshots Pre Cath Intra NCS Post Cath Vital Signs Time Heart Resp SPO2 etCO2 NIBP (mmHg) Rhythm Pain Sedation Rate (ipm) (%) (mmHg) Status Level (bpm) 13:16:13 73 19 100 20 Measuring NSR 0 (11) 10(A) , No pain 13:16:44 68 11 100 19 183/86(135) NSR 0 (11) 10(A) , No pain 13:21:10 71 22 100 21 192/97(143) NSR 0 (11) 10(A) , No pain 13:25:38 75 12 100 19.5 193/95(148) NSR 0 (11) 10(A) , No pain 13:30:11 70 16 100 25.5 174/75(120) NSR 0 (11) 10(A) , No pain 13:34:33 68 16 100 27 154/72(121) NSR 0 (11) 10(A) , No pain 13:38:57 69 10 100 21 163/73(121) NSR 0 (11) 10(A) , No pain 13:43:21 74 12 100 27.7 162/78(121) NSR 0 (11) 10(A) , No pain 13:47:43 88 13 100 31.5 169/85(125) NSR 0 (11) 10(A) , No pain 13:52:04 75 14 100 34 152/66(104) NSR 0 (11) 10(A) , No pain 13:56:28 76 13 100 30.6 148/70(116) NSR 0 (11) 10(A) , No pain 14:00:50 76 17 100 31.4 163/68(121) NSR 0 (11) 10(A) , No pain 14:05:14 75 11 100 31.5 152/77(124) NSR 0 (11) 10(A) , No pain 14:09:34 73 15 100 32.2 166/79(138) NSR 0 (11) 10(A) , No pain 14:14:00 73 13 100 33.7 173/78(135) NSR 0 (11) 10(A) , No pain 14:18:23 69 18 100 30.6 146/70(112) NSR 0 (11) 10(A) , No pain 14:22:41 69 12 100 29.7 125/56(93) NSR 0 (11) 10(A) , No pain 14:27:40 82 18 98 1.4 Measuring NSR 0 (11) 10(A) , No pain 14:27:42 82 17 98 1.4 150/78(118) NSR 0 (11) 10(A) , No pain 14:32:06 85 16 100 44.2 149/68(115) NSR 0 (11) 10(A) , No pain 14:37:05 85 17 100 40.4 Measuring NSR 0 (11) 10(A) , No pain 14:37:23 86 17 100 40 150/77(118) NSR 0 (11) 10(A) , No pain 14:41:44 89 11 100 41.2 166/81(125) NSR 0 (11) 10(A) , No pain 14:46:08 88 14 100 40.4 169/81(127) NSR 0 (11) 10(A) , No pain Medications Time Medication Route Dose Verified Delivered Reason Notes Effecti veness by by 13:21:00 0.9% NaCl I.V. 100 Oziel Ayala used for ml/hr Wendy Osman procedure MD GERARD 13:21:07 Oxygen etCO2 2 Oziel Ayala used for Nasal l/min Wendy Osman procedure cannula MD GERARD 13:21:27 Lidocaine added 20ml Eduar Witt for local 1% to vial Mercedes Sanchez MD anesthetic field x 2 13:21:43 Ancef I.V.P.B 1 g Oziel Lucy used for (1Gm/50ml Wendy Osman procedure NS) MD GERARD 13:21:51 Ancef Topical 1 g Oziel Lucy used for Irrigation Wendy Osman procedure (1gm/500ml MD GERARD NS) 14:20:48 Versed I.V. 2 mg Oziel Lucy for WendyRemy Brewer sedation MD GERARD 14:20:54 Fentanyl I.V. 100 Oziel Lucy for mcg Wendy Osman sedation MD GERARD 14:24:40 Versed I.V. 2 mg Oziel Lucy for Wendy Osman sedation MD GERARD 14:24:46 Fentanyl I.V. 50 Oziel Lucy for mcg WendyRemy Brewer sedation MD GERARD 14:31:17 Versed I.V. 2 mg Oziel Lucy for WendyRemy Brewer sedation MD GERARD 14:31:22 Fentanyl I.V. 50 Oziel Lucy for mcg Wendy Osman sedation MD GERARD 14:36:14 Fentanyl I.V. 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 12:51:47 Time tracking: Regular hours (M-F 7:00 - 5:00) 12:51:51 Plan of Care:Hemodynamics will remain stable., Cardiac rhythm will remain stable., Comfort level will be maintained., Respiratory function will remain adequate., Patient/ family verbilizes understanding of procedure., Procedure tolerated without complication., Recovers from procedure without complications.. 12:51:55 Signed procedure consent form obtained from patient. 12:52:09 Patient allergic to No known allergies 12:53:55 Lucy Brewer RN sent for patient. Start room use. 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 12:59:09 Use device set MERCEDES PPM 12:59:10 2-0 Ticron Multipack ([id number]) opened to sterile field. 12:59:11 3-0 Vicryl Single Pack [id number] opened to sterile field. 12:59:11 5-0 Monocryl PS2 [id number] opened to sterile field. 12:59:11 Cautery Tip Passenger Vessel Chef opened to sterile field. 12:59:12 Cautery Pushbutton Pencil opened to sterile field. 12:59:13 Mepilex Dressing ([id number]) opened to sterile field. 12:59:15 Immobilizer Large opened to sterile field. 12:59:26 Medtronic 4574-45 PPM Lead opened to sterile field. 12:59:29 Medtronic 4074-52 PPM Lead opened to sterile field. 12:59:[address] Generator [id number] opened to sterile field. 13:05:37 Patient received from Pre/Post Procedure Room to [facility] 3 Alert and oriented. Tansferred to table in Supine position. 13:05:38 Warm blankets applied, and liz hugger turned on for patient comfort. 13:05:39 Correct patient and procedure confirmed by team. 13:05:39 ECG and BP/O2 sat monitors applied to patient. 13:14:23 Vital chart was started 13:14:25 Baseline sample Acquired. 13:15:04 Rhythm: sinus rhythm 13:15:05 Full Disclosure recording started 13:15:17 H&P Date Dictated: 05/20/2019 Within 30 days and on chart., H&P Addendum completed by physician on day of procedure. (MUST COMPLETE FOR ALL OUTPATIENTS). 13:15:18 Pre-procedure instructions explained to patient. 13:15:18 Pre-op teaching completed and patient verbalized understanding. 13:15:20 Family in patients room. 13:15:22 Patient NPO since Midnight. 13:15:35 Is the patient allergic to Iodine/contrast media? No. 13:15:36 Is patient on blood thinner?No 13:17:58 Patient diabetic? Yes. 13:17:59 If diabetic: On Metformin? No 13:18:01 Previous problem with sedation/anesthesia? No ? 13:18:02 Snore? Yes 13:18:03 Sleep apnea? No 13:18:04 Deviated septum? No 13:18:05 Opens mouth fully? Yes 13:18:06 Sticks out tongue? Yes 13:18:07 Airway obstruction? No ? 13:18:09 Dentures? No ? 13:18:20 IV patent on arrival in right forearm with 0.9% NaCl at [facility]. 13:18:22 Lab results completed and on chart. 13:18:28 Left chest area was prepped with dura-prep and draped in sterile fashion 13:18:29 Alarms reviewed by R. N. 13:18:30 Sharps counted by scrub and verified by R.N. 13:18:49 Pre sharps counted by scrub and verified by RN: Sutures: 7; Sponges: 5; Stick needles: 2; Skin needles: 2; Blade: 1; Cautery: 1 13:18:52 Grounding pad site Left thigh. 13:18:53 Grounding pad site free from injury. 13:21:00 0.9% NaCl 100 ml/hr I.V. was administered by Lucy Brewer RN; used for procedure; 13:21:07 Oxygen 2 l/min etCO2 Nasal cannula was administered by Lucy Brewer RN; used for procedure; 13:21:27 Lidocaine 1% 20ml vial x 2 added to field was administered by Eduar Sanchez MD; for local anesthetic; 13:21:43 Ancef (1Gm/50ml NS) 1 g I.V.P.B was administered by Lucy Brewer RN; used for procedure; 13:21:51 Ancef Irrigation (1gm/500ml NS) 1 g Topical was administered by Lucy Brewer RN; used for procedure; 13:27:58 Physician paged 13:28:30 Physician responded to page. 14:01:47 Case delayed due to Surgeon in OR. 14:18:07 Physician paged 14:18:10 Physician responded to page. 14:19:00 Physician arrived 14:19:35 --------ALL STOP TIME OUT------ 14:19:36 Final Timeout: patient, procedure, and site verified with staff and physician. All members of the team are in agreement. 14:19:43 Left chest site verified by team. 14:19:53 Fire Safety Assessment: A--An alcohol-based skin anteseptic being used preoperatively., B--The operative or invasive procedure is being performed above the xiphoid process or in the oropharynx., C--Open oxygen or nitrous oxide is being used. 14:20:14 Physical assessment completed. ASA score P 2 - A patient with mild systemic disease as per Oziel Nguyen MD. 14:20:18 Sedation plan: IV Moderate Sedation Medication:Versed, Fentanyl 14:20:48 Versed 2 mg I.V. was administered by Lucy Brewer RN; for sedation; 14:20:54 Fentanyl 100 mcg I.V. was administered by Lucy Brewer RN; for sedation; 14:22:39 Procedure started. 14:22:47 Lidocaine 1% was administered to left subclavicular area by Eduar Sanchez MD . 14:24:40 Versed 2 mg I.V. was administered by Lucy Brewer RN; for sedation; 14:24:46 Fentanyl 50 mcg I.V. was administered by Lucy Brewer RN; for sedation; 14:25:00 Incision made to left subclavicular area. 14:25:24 Generator pocket made/opened. 14:29:43 Left subclavian vein accessed with 7Fr Peel Away Sheath. 14:30:31 Left subclavian vein accessed with 7Fr Peel Away Sheath. 14:30:38 Ventricular lead inserted and advanced. 14:30:44 Atrial lead inserted and advanced. 14:31:17 Versed 2 mg I.V. was administered by Lucy Brewer RN; for sedation; 14:31:22 Fentanyl 50 mcg I.V. was administered by Lucy Brewer RN; for sedation; 14:31:49 Ventricular lead positioned. 14:31:53 Ventricular lead tested. 14:33:39 Atrial lead positioned. 14:33:42 Atrial lead tested. 14:36:14 Fentanyl 50 mcg I.V. was administered by Lucy Brewer RN; for sedation; 14:36:40 Peel-a-way sheath was split and removed. 14:38:18 Peel-a-way sheath was split and removed. 14:38:30 Ventricular lead attachment was completed with 2-0 ticron. 14:38:34 Atrial lead attachment was completed with 2-0 ticron. 14:41:48 PPM Dual was attached to lead(s) and inserted into pocket. 14:41:53 Generator was sutured in place with 2-0 ticron. 14:42:07 Parameters-- Generator: Mode: DDDR. Lower Rate: 60bpm. Upper Rate: 120bpm. 14:42:32 Parameters--Ventricular P/R Wave: 10.3mV. Current: 0.8mA; Threshold: 0.9V; Impedence: 1350OHMS. 14:43:47 Parameters--Atrial P/R Wave: 1.6mV. Current: 0.9mA; Threshold: 0.7V; Impedence: 673OHMS. 14:43:52 Device pocket was irrigated with Ancef. 14:46:08 Subcutaneous closure was completed with 3-0 vicryl. 14:47:20 Skin closure was completed with 5-0 monocryl. 14:47:25 Lt Chest incision was dressed with Mepilex dressing. 14:47:30 Procedure ended.(Physican Out) 14:47:50 Fluoroscopy time 03.00 minutes. 14:47:55 Fluoroscopy dose: 60.36 mGy 14:47:55 Flurop Dose total: 60.36 14:48:00 Dose Area Product 756.71 mGy/cm. 14:48:04 Contrast amount:Isovue 300 0ml. 14:48:06 Sharps counted by scrub and verified by R.N. 14:48:22 Post sharps counted by scrub and verified by RN: Sutures: 7; Sponges: 5; Stick needles: 2; Skin needles: 2; Blade: 1; Cautery: 1 14:48:31 Insertion/operative site no bleeding no hematoma. 14:48:35 Post-procedure physical assessment completed. ASA score P 2 - A patient with mild systemic disease as per Oziel Nguyen MD. 14:48:41 Post procedure rhythm: paced 14:48:43 Estimated blood loss: 5 ml 14:48:45 Post procedure instruction explained to patient.Patient verbalizes understanding. 14:48:45 Patient needs reinforcement of post procedure teaching. 14:48:51 Procedure and supply charges have been captured, reviewed, submitted and are correct. 14:48:53 Procedure Complication : No complications 14:48:57 Vital chart was stopped 14:48:58 See physician's report for complete and final results. 14:49:00 Report given to PCU. 14:49:03 Patient transfered to PCU with Bed. 14:49:05 Procedure ended. 14:49:05 Full Disclosure recording stopped 14:49:17 End room use (Document Last) Device Usage Item Name Manufacture Quantity Catalog Hospital Part Current [facility] Lot# / Serial# Number Charge Number Stock Stock Code 2-0 Ticron Ethicon 9 [id number] 28721 [id number] 5 Multipack ([id number]) 3-0 Vicryl Ethicon 1 [id number] 365118 5 Single Pack [id number] 5-0 Monocryl Ethicon 1 [id number] 942136 110466 5 PS2 Y495G Cautery Tip Microtek 1 [id number] 429827 346382 [id number] 5 Passenger Vessel [employer] Cautery Microtek 1 [id number] 924075 76649 905626 5 Pushbutton [employer] Pencil Mepilex Cardinal 1 [id number] 765751 535594 571855 5 [facility] ([id number]) Immobilizer Cardinal 1 [id number] [id number] 651311 888265 5 Large Health Medtronic Medtronic 1 4574-45 674159 611239 639632 5 [id number] 4574-45 PPM EXP:07/29/2020 Lead [id number] Medtronic Medtronic 1 4074-52 800090 012393 [id number] 5 [id number] 4074-52 PPM EXP:06/17/2019 Lead [id number] Medtronic Medtronic 1 [id number] 040453 [id number] [id number] [id number] EXP:10/06/2020 Generator [id number] Signature Audit Pecan Gap Stage Time Signature Unsigned Intra-Procedure 05/26/2019 Thomas Nelson 2:50:58 PM RT(R) Signatures Performing Physician : Signature : Oziel Nguyen MD Date : Time : Monitor : Thomas Nelson RT Signature : Date : Time : Nurse : Lucy Brewer RN Signature : Date : Time : [address] [place] [address]
[~2019-05-26 11:26] MED LIST: BACTRIM 400-801 TAB PO; BAYER CHEWABLE81 MG PO; CELEXA10 MG PO; COZAAR50 MG PO; DOXEPIN HCL10 MG PO; GABAPENTIN100 MG PO; HYDROCHLOROTH12.5 M1 PO; LEVEMIR FL100 UNIT/1 SC; MYRBETRIQ25 MG PO; OMNICEF300 MG PO; PLAVIX75 MG PO; PROBIOTIC1 EAC1 PO; PROTONIX40 MG PO; TOPROL XL50 MG PO; UNITHROID100 MCG PO; XANAX0.25 MG PO; ZANTAC300 MG PO
[2019-05-26 12:22] VITALS: BP 189/79; BMI 24.4
[2019-05-26 12:35] LABS: BASOPHILS 0.7 % (0-2); EOSINOPHILS 2.8 % (0-7); HEMOGLOBIN 10.5 g/dL (12-16); IMMATURE GRANULOCYTES 0.2 % (0-5); LYMPHOCYTES 28.6 % (15-50); MCH 29.1 pg (26.0-34.0); MCHC 33.9 g/dL (31.0-37.0); MCV 85.9 fL (80.0-100.0); MEAN PLATELET VOLUME 9.4 fL (7.4-10.4); MONOCYTES 10.1 % (2-11); NEUTROPHILS 57.6 % (40-80); PLATELET COUNT 283 10x3/uL (130-400); RBC 3.61 10x6/uL (4.00-5.40); RDW 14.8 % (11.5-14.5); WBC 4.3 10x3/uL (4.8-10.8)
[2019-05-26] MEDS ORDERED: GEMFIBROZIL600 MG PO (12:35)
[2019-05-26] MEDS ORDERED: DOXEPIN HCL10 MG PO (12:36)
[2019-05-26] MEDS ORDERED: HCTZ25 MG PO (12:38)
[2019-05-26] MEDS ORDERED: ULTRAM50 MG PO (12:39)
[2019-05-26] MEDS ORDERED: MYRBETRIQ50 MG PO (12:41)
[2019-05-26 12:43] LABS: ANION GAP 16.9 mmol/L (8-16); APTT 32.9 SECONDS (22.8-39.4); CALCIUM 9.2 mg/dL (8.5-10.1); CARBON DIOXIDE 23.1 mmol/L (21.0-32.0); CREATININE - SERUM 1.8 mg/dL (0.6-1.3); INR 1.04 (0.85-1.17); PROTIME 13.1 SECONDS (11.6-15.0)
--- NOTE | 2019-05-26 15:45 | NUR ---
RECEIVED PT FROM COMMAND AND CONTROL OFFICER NEW PACEMAKER PLACEMENT DRSG C/D/I TO LT CHEST VSS AAOX4 RESP UNLABORED NAD NOTED DAUGHTER AT BEDSIDE WILL CONTINUE TO MONITOR
[2019-05-26 16:06] VITALS: BP 178/80; Ht 156.2 cm; Wt 59.5 kg
--- NOTE | 2019-05-26 19:27 | NUR ---
RESUMING PATIENT CARE. PATIENT IS ALERT AND ORIENTED. RESTING COMFORTABLY IN BED. RESPIRATIONS ARE EVEN AND UNLABORED. NO S/S OF DISTRESS. NO C/O PAIN. CALL LIGHT WITHIN REACH. WILL CPOC.
[2019-05-26 20:00] VITALS: BP 146/60
[2019-05-27 00:30] VITALS: BP 139/64
[2019-05-27 04:30] VITALS: BP 142/68
[2019-05-27 08:35] VITALS: BP 156/56
--- NOTE | 2019-05-27 12:28 | NUR ---
IV AND TELEMETRY DCD. DC PLANS GIVEN. UNDERSTANDING VOICED. ESCORTED TO CAR BY W/C.
--- NOTE | 2019-05-28 13:23 | OP ---
PATIENT NAME: LAILA KENNEDY MEDICAL RECORD: [id number] :40 LOCATION:D.CAT ADMISSION DATE: SURGEON: EDUAR LONG MD DATE OF OPERATION: 05/26/2019 PREOPERATIVE DIAGNOSES: 1. Sick sinus syndrome with pauses. 2. Coronary artery disease. 3. Hypertension. 4. Hyperlipidemia. POSTOPERATIVE DIAGNOSES: 1. Sick sinus syndrome with pauses. 2. Coronary artery disease. 3. Hypertension. 4. Hyperlipidemia. PROCEDURE: Left subclavian vein dual lead pacemaker placement. SURGEON: Eduar Long MD CO-SURGEON: Oziel Schmitz MD REPORT OF PROCEDURE: The patient's left chest was prepped and draped in sterile fashion. A 25 mL of 1% lidocaine with epinephrine was infused into the surrounding tissues. A transverse incision was made in the left superior lateral chest and a subcutaneous pouch was made over the pectoral fascia. [place] were used to cannulate the left subclavian vein and guidewires were advanced with ease. Fluoro was used to place the wires in the superior vena cava. The dilator trocar devices were then placed over the wires and the wires and dilators were removed. The leads were advanced through the trocars and placed into the superior vena cava. At this point, Dr. Schmitz positioned the leads appropriately in the atrium and ventricle. Once the leads were noted to be functioning appropriately, then they were sutured into place with 0 Ti-Cron. We then placed the leads into the pacemaker and placed the pacemaker in the subcutaneous pouch. We then sutured it to the pectoral fascia using a single interrupted 0 Ti-Cron. We irrigated out the wound with antibiotic solution. The subcutaneous tissues were reapproximated with interrupted 3-0 Vicryl and the skin was closed with running subcutaneous 5-0 Monocryl. COMPLICATIONS: None. CONDITION: Stable. ANESTHESIA: Local MAC. BLOOD LOSS: Minimal. TRANSINT:[id number] Voice Confirmation ID: [id number] DOCUMENT ID: [id number] OPERATIVE REPORT [id number] LAILA KENNEDY CHRISTIAN MD at 1323 CC: [id number] DICTATION DATE: 05/26/19 1452 AUTOGLAZIER: 05/26/19 1608 DEP CLI 05/27/19 [id number] [place] [address]
--- NOTE | 2019-05-28 14:29 | OP ---
PATIENT NAME: LAILA MALDONADO MEDICAL RECORD: [id number] :40 LOCATION:D.CAT ADMISSION DATE: SURGEON: LINH WOLFE MD DATE OF OPERATION: 05/26/2019 PROCEDURE: Lead portion of permanent pacemaker placement. INDICATION: Sick sinus syndrome with pauses greater than 4 seconds. SURGEON: Eduar Sanchez MD DESCRIPTION OF PROCEDURE: After the left subclavian was cannulated via the modified Seldinger technique via Dr. Sanchez, first, under fluoroscopic guidance, I placed RV lead in the RV apex without difficulty. After adequate R waves and thresholds were obtained, again under fluoroscopic guidance, I placed the right atrial lead in right atrial appendage without difficulty. After adequate P waves and thresholds were obtained, the leads were attached to appropriate poles of the generator and the pocket was closed via Dr. Sanchez. IMPRESSION: Successful lead portion of permanent pacemaker placement on Laila Maldonado. ESTIMATED BLOOD LOSS: Minimal. COMPLICATIONS: None. DISPOSITION: To the floor, stable. TRANSINT:[id number] Voice Confirmation ID: [id number] DOCUMENT ID: [id number] LINH WOLFE MD at 1429 CC: [id number] DICTATION DATE: 05/26/19 1445 POLITICAL SCIENTIST: 05/26/19 1504 [facility] CLI 05/27/[address] [address]
== END 2019-05-27 12:29 | disposition home or self-care (01) ==
LOC: D.CATH 11:26 → D.M2 15:20 → D.CATH 05-27 12:29
PROVIDERS: ATTEND Internal Medicine Interventional Cardiology
DX: I49.5 Sick sinus syndrome (principal); I25.10 Atherosclerotic heart disease of native coronary artery without angina pectoris; I10 Essential (primary) hypertension; E78.5 Hyperlipidemia, unspecified

== ENCOUNTER → 2019-10-05 13:20 | Outpatient (CLI) | payer MEDICARE, OTHER ==
[2019-05-26 16:06] VITALS: BMI 24.4
[~2019-10-05 13:20] MED LIST changes: +GEMFIBROZIL600 MG PO; +HCTZ25 MG PO; +MYRBETRIQ50 MG PO; +ULTRAM50 MG PO
== END | disposition home or self-care (01) ==
LOC: D.US 08:30
PROVIDERS: ATTEND Internal Medicine Cardiovascular Disease
DX: I65.23 Occlusion and stenosis of bilateral carotid arteries (principal)